=== PATIENT | female | born 1970 | race Caucasian/White ===

== ENCOUNTER 2019-09-30 13:52 | Outpatient (CLI) | payer OTHER, SELFPAY ==
--- NOTE | ~2019-09-30 | XR_ITS ---
EXAMINATION: XR chest 2V EXAM DATE: 09/30/2019 14:15 INDICATION: Cough, symptoms one week. Shortness of breath. TECHNIQUE: Frontal and lateral projections of the chest obtained and reviewed. Comparison is made to prior examination from 04/03/2014. FINDINGS: The lungs are clear. There are no pleural effusions. The cardiomediastinal silhouette is within normal limits. There is no pneumothorax suspected. The bones and soft tissues are unremarkab le. There are cholecystectomy clips. IMPRESSION: No acute cardiopulmonary findings. Reviewed, dictated and finalized at location A.
== END 2019-09-30 13:53 | disposition home or self-care (01) ==
PROVIDERS: PCP Physician Assistant; Visit Provider Physician Assistant
DX: R05 Cough (principal); R06.02 Shortness of breath
CPT/HCPCS: 71046

== ENCOUNTER 2020-11-13 08:06 | Outpatient (CLI) | payer OTHER, SELFPAY ==
--- NOTE | ~2020-11-13 | MM_ITS ---
EXAMINATION: MM screening anastasia BI w barbara HISTORY: Screening TECHNIQUE: Craniocaudal and mediolateral oblique 3-D tomosynthesis images were obtained and synthetic 2-D images were generated. CAD analysis was submitted and interpreted. COMPARISON: Comparison to multiple prior studies sequentially, with oldest reviewed study dated 01/04. BREAST PARENCHYMAL COMPOSITION: There are scattered areas of fibroglandular density. FINDINGS: There is no evidence of suspicious mass, calcification, or architectural distortion to sugg est malignancy in either breast. There has been no suspicious interval change. IMPRESSION: 1. No mammographic evidence of malignancy. 2. Recommend routine screening mammography in one year. BI-RADS Category 1: Negative Reviewed, dictated and finalized at location A.
== END 2020-11-13 08:07 | disposition home or self-care (01) ==
PROVIDERS: PCP Physician Assistant; Visit Provider Physician Assistant
DX: Z12.31 Encounter for screening mammogram for malignant neoplasm of breast (principal)
CPT/HCPCS: 77063; 77067

== ENCOUNTER 2022-10-01 15:51 | Outpatient (CLI) | payer OTHER, SELFPAY ==
--- NOTE | ~2022-10-01 | XR_ITS ---
EXAMINATION: XR chest 2V Exam Date/Time: 10/01/2022 15:50 CDT HISTORY: chest pain RIGHT SIDE FOR 1 DAY, HTN, SMOKER Comparison: None available. RESULT: Lines, tubes, and devices: None. Lungs and pleura: Clear. Cardiomediastinal silhouette: Normal. Other: No acute osseous or upper abdominal finding. IMPRESSION: No acute cardiopulmonary process. Reviewed, dictated and finalized at location K.
== END 2022-10-01 15:52 | disposition home or self-care (01) ==
PROVIDERS: PCP Family Medicine; Visit Provider Physician Assistant
DX: R07.9 Chest pain, unspecified (principal); I10 Essential (primary) hypertension
CPT/HCPCS: 71046

== ENCOUNTER 2023-08-06 07:27 | Outpatient (CLI) | payer BC, SELFPAY ==
--- NOTE | ~2023-08-06 | MM_ITS ---
EXAMINATION: MM screening [facility] BI w barbara HISTORY: Screening mammogram TECHNIQUE: Craniocaudal and mediolateral oblique 3-D tomosynthesis images were obtained and synthetic 2-D images were generated. CAD analysis was submitted and interpreted. COMPARISON: 11/13/2020, 02/08/2019, 01/06/2018 BREAST PARENCHYMAL COMPOSITION: The breasts are almost entirely fatty. FINDINGS: No suspicious mass, calcification, or architectural distortion are identified in either brandi ast to suggest malignancy. There has been no suspicious interval change. IMPRESSION: 1. No mammographic evidence of malignancy. 2. Recommend routine screening mammography in one year. BI-RADS Category 1: Negative Reviewed, dictated and finalized at location A. [employer]
== END 2023-08-06 07:28 | disposition home or self-care (01) ==
LOC: ANHIMG 07:33
PROVIDERS: PCP Family Medicine; Visit Provider Physician Assistant
DX: Z12.31 Encounter for screening mammogram for malignant neoplasm of breast (principal)
CPT/HCPCS: 77063; 77067

== ENCOUNTER 2024-01-19 02:42 | Day surgery (SDC) | payer BC, SELFPAY ==
[2024-01-06 13:17] VITALS: BMI 35.2
[2024-01-19 10:05] VITALS: BP 169/82; PULSE 111; RESP 16; TEMP 36.9; O2SAT 98
[2024-01-19] MEDS: LACTATED RINGERS 1,000 ML 150 ML IV CONT (10:16)
--- NOTE | 2024-01-19 11:13 | WPDANESEPPF ---
Anes - Initial Pre Proc Eval Procedure: Operation Date: 01/19/24 11:00 Proposed Procedures p Screening Colonoscopy - Israel De Leon DO Date/Time: 01/19/24 11:13 Surgeon: Israel De Leon DO Pre Op Diagnosis: Neoplasm screening Patient Data Age: 53 Gender: F Height: 1.63 m Weight: 92.1 kg Last Vital Signs Temp 98.4 F 01/19/24 10:05 Pulse 111 H 01/19/24 10:05 Resp 16 01/19/24 10:05 BP 169/82 H 01/19/24 10:05 Pulse Ox 98 01/19/24 10:05 O2 Del Method Room Air 01/19/24 10:05 Allergies Allergy/AdvReac Type Severity Reaction Status Date / Time Tetanus Vaccines and Toxoid Allergy Intermediate Swelling Verified 01/19/24 10:05 Home Medications Medication Instructions Recorded Confirmed Type atorvastatin 40 mg tablet 40 mg PO DAILY #90 tabs 07/30/23 01/06/24 Rx paroxetine HCl 10 mg tablet 10 mg PO DAILY #90 tabs 07/30/23 01/06/24 Rx losartan 100 mg tablet See Rx Instructions .Route 12/02/23 01/06/24 Rx .COMPLEX #30 tabs multivitamin 1 tablet PO DAILY 12/28/23 01/06/24 History Patient hx anesthesia problems: none Family hx anesthesia problems: none Results Review: All pre-operative results and documents have been reviewed as part of the pre-operative evaluation. [facility] Past Medical History Medical History Anxiety Hyperlipidemia Hypertension Surgical History Surgical History History of cervical cone biopsy affecting care of mother, antepartum 80s-90s History of section 1997 History of cholecystectomy 1997 History of hysterectomy 04/11/2014 History of tonsillectomy 1986 Family History Family History Father Hypertension Mother Hypertension Grandparent Diabetes mellitus Cerebrovascular accident Social History Social History Smoking packs per day: 1 Smoking cigarettes per day: 20.0 Years smoked: 30 Smoking pack-years: 30.00 Smoking status: Former smoker Tobacco type: cigarettes Second hand tobacco smoke exposure: Yes Alcohol intake: current Alcohol use details: couple times a year Substance use: never Substance use type: does not use Do You Feel Safe in your Home?: Yes Lack of Transportation: No Lack of Food: Never True Current Housing: I Have Housing Concerned About Future Housing: No Difficulty Paying Gas/Electric Bills: No Difficulty Paying for Meds: No Currently Unemployed: No Education: Trade/Vocational Certificate Difficulty w/ Childcare or Family Care: No Living arrangements: with family Occupation/Education: occupation 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 Gender identity (if verbalized by the patient): Female Sexual Orientation (if Verbalized by the Patient): Straight or Heterosexual Spiritual care concerns: No Anes - Eval Final PreProcedure Day of Procedure 01/19/24 11:13 Patient weight: obese Heart: regular rate and rhythm Lungs: clear to auscultation Airway: Mallampati scale class II Neurological: alert and oriented Last oral intake: >/= 8 hours ASA classification: III Emergent: no Anesthetic plan: proceed Anesthesia type and monitoring: general GIVS and standard monitoring Results Review: All pre-operative results and documents have been reviewed as part of the pre-operative evaluation. Informed Consent: The patient's anesthetic plan and its attendant risks and benefits were discussed with the patient/family/POA. Questions were solicited and answers provided to the satisfaction of the patient/family/POA.
--- NOTE | 2024-01-19 11:23 | PM.IMHP ---
H&P: HPI History of Present Illness Date/Time: 01/19/24 11:23 Chief Complaint: screening for colorectal cancer Narrative: this is a 53-year-old woman who presents for colonoscopy. She has never had a colonoscopy before. She denies any family history of colon cancer. She denies any hematochezia or melena. Review of Systems Review of Systems: All systems reviewed & are unremarkable except as noted in HPI and below Constitutional: Constitutional: Denies chills, Denies fever(s), Denies headache(s) and Denies weight loss Eyes: Eyes: Denies change in vision ENT: Denies dizziness, Denies headache(s), Denies neck mass and Denies throat swelling Cardiovascular: Cardiovascular: Denies chest pain, Denies lightheadedness and Denies dyspnea Respiratory: Respiratory: Denies cough, Denies dyspnea and Denies wheezing Gastrointestinal: Gastrointestinal: Denies abdominal pain, Denies change in bowel habits, Denies nausea and Denies vomiting Genitourinary: Genitourinary: Denies hematuria and Denies dysuria Musculoskeletal: Musculoskeletal: Reports as per HPI Integumentary/Breasts: Skin/Breast: Reports as per HPI Neurologic: Denies dizziness and Denies headache(s) Allergic/Immunologic: Allergic/Immunologic: Denies throat swelling and Denies wheezing [facility] Past Medical History Medical History Anxiety Hyperlipidemia Hypertension Surgical History Surgical History History of cervical cone biopsy affecting care of mother, antepartum 80s-90s History of section 1997 History of cholecystectomy 1997 History of hysterectomy 04/11/2014 History of tonsillectomy 1986 Family History Family History Father Hypertension Mother Hypertension Grandparent Diabetes mellitus Cerebrovascular accident Social History Social History Smoking packs per day: 1 Smoking cigarettes per day: 20.0 Years smoked: 30 Smoking pack-years: 30.00 Smoking status: Former smoker Tobacco type: cigarettes Second hand tobacco smoke exposure: Yes Alcohol intake: current Alcohol use details: couple times a year Substance use: never Substance use type: does not use Do You Feel Safe in your Home?: Yes Lack of Transportation: No Lack of Food: Never True Current Housing: I Have Housing Concerned About Future Housing: No Difficulty Paying Gas/Electric Bills: No Difficulty Paying for Meds: No Currently Unemployed: No Education: Trade/Vocational Certificate Difficulty w/ Childcare or Family Care: No Living arrangements: with family Occupation/Education: occupation 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 Gender identity (if verbalized by the patient): Female Sexual Orientation (if Verbalized by the Patient): Straight or Heterosexual Spiritual care concerns: No Meds Home Medications and Allergies Home Medications Medication Instructions Recorded Confirmed Type atorvastatin 40 mg tablet 40 mg PO DAILY #90 tabs 07/30/23 01/06/24 Rx paroxetine HCl 10 mg tablet 10 mg PO DAILY #90 tabs 07/30/23 01/06/24 Rx losartan 100 mg tablet See Rx Instructions .Route 12/02/23 01/06/24 Rx .COMPLEX #30 tabs multivitamin 1 tablet PO DAILY 12/28/23 01/06/24 History Allergies Allergy/AdvReac Type Severity Reaction Status Date / Time Tetanus Vaccines and Toxoid Allergy Intermediate Swelling Verified 01/19/24 10:05 Vital Signs Vital Signs - 24 hr 01/19/24 10:05 Temperature 36.9 C Pulse Rate 111 H Respiratory Rate 16 Blood Pressure 169/82 H Pulse Oximetry 98 Oxygen Delivery Room Air Exam Const: General: no acute distress and alert Orientation/consciousness: patient oriented x3 HENMT: Head: normocephalic and atraumatic Ears: h
[2024-01-19 11:54] VITALS: BP 109/69; PULSE 85; RESP 16; O2SAT 99
[2024-01-19 12:04] VITALS: BP 132/81; PULSE 85; RESP 16; O2SAT 98
[2024-01-19 12:14] VITALS: BP 106/83; PULSE 87; RESP 16; O2SAT 98
== END 2024-01-19 12:31 | disposition home or self-care (01) ==
PROVIDERS: PCP Family Medicine; Visit Provider Surgery
PROC: 0DJD8ZZ Inspection of Lower Intestinal Tract, Via Natural or Artificial Opening Endoscopic (ICD-10-PCS; CPT 45378; principal; 2024-01-19 11:00)
DX: Z12.11 Encounter for screening for malignant neoplasm of colon (principal); D12.5 Benign neoplasm of sigmoid colon; K64.8 Other hemorrhoids; E78.5 Hyperlipidemia, unspecified; I10 Essential (primary) hypertension; F41.9 Anxiety disorder, unspecified; Z87.891 Personal history of nicotine dependence
CPT/HCPCS: 45385; 88305; J2704; J7120

== ENCOUNTER 2024-09-01 09:00 | Outpatient (CLI) | payer BC, SELFPAY ==
--- NOTE | ~2024-09-01 | MM_ITS ---
EXAMINATION: MM screening anastasia BI w barbara HISTORY: Screening TECHNIQUE: Craniocaudal and mediolateral oblique 3-D tomosynthesis images were obtained and synthetic 2-D images were generated. CAD analysis was submitted and interpreted. COMPARISON: Comparison to multiple prior studies sequentially, with oldest reviewed study dated 10/2014. BREAST PARENCHYMAL COMPOSITION: Not dense: There are scattered areas of fibroglandular density. FINDINGS: There is no evidence of suspicious mass, calcification, or architectural distortion to sugg est malignancy in either breast. There has been no suspicious interval change. IMPRESSION: 1. No mammographic evidence of malignancy. 2. Recommend routine screening mammography in one year. BI-RADS Category 1: Negative Reviewed, dictated and finalized at location [] D [employer]
== END 2024-09-01 09:01 | disposition home or self-care (01) ==
PROVIDERS: PCP Family Medicine; Visit Provider Family Medicine
DX: Z12.31 Encounter for screening mammogram for malignant neoplasm of breast (principal)
CPT/HCPCS: 77063; 77067

== ENCOUNTER 2025-01-02 09:37 | Inpatient (IN) | payer BC, SELFPAY ==
[2025-01-02] VITALS (47 sets, daily range): BP systolic 109–150; BP diastolic 48–80; PULSE 80–114; RESP 8–28; TEMP 36.4–37.2; O2SAT 94–100; BMI 34.1
--- NOTE | ~2025-01-02 | CT_ITS ---
CTA abdomen pelvis Ordering provider: Lizbeth Garcia MD History: . GI bleed, rectal bleeding x3 weeks, no pain . Comparison: None. Technique: CT angiogram abdomen and pelvis was performed following timed intravenous injection of con trast. Thin slice axial images and reformatted coronal images were obtained. Three dimensional reform atted images of the chest were also obtained using a [employer] workstation. . Automated exposure contro l and iterative reconstruction technique were employed. The dose-length product was 1147.29 mGy-cm. 100 mL Omnipaque 350 was given IV. FINDINGS: VISUALIZED LOWER CHEST: Mild dependent atelectasis bilaterally. UPPER ABDOMINAL ORGANS: Liver: Normal. Gallbladder: Status post cholecystectomy. Spleen: Normal. Stomach/duodenum: Normal. Pancreas: Normal. Adrenals: Bilateral adrenal adenomas with the left measures 2.4 cm and the right measures 1.9 cm. Kidneys: Normal. PELVIC ORGANS: The bladder is underfilled with thickened wall. BOWEL AND MESENTERY: Colon: No evidence of diverticulitis. Normal appendix. Small Bowel: Normal. No obstruction. Peritoneum/mesentery: No free air or free fluid. No mesenteric lymphadenopathy. RETROPERITONEUM: No retroperitoneal lymphadenopathy. ABDOMINAL AORTA: Mild atherosclerotic changes. Otherwise, Normal in caliber. No dissection. ILIAC ARTERIES AND BRANCHING VESSELS: Atherosclerotic changes. Normal in caliber. RENAL ARTERIES: Atherosclerotic changes. Normal caliber. CELIAC AXIS AND BRANCHING VESSELS: Normal. SUPERIOR MESENTERIC ARTERY AND BRANCHING VESSELS: Normal. INFERIOR MESENTERIC ARTERY: Normal. VISUALIZED FEMORAL ARTERIES: Atherosclerotic changes. Otherwise, Normal. MUSCULOSKELETAL: Superficial soft tissues: fat-containing umbilical hernia. Otherwise, The superficial soft tissues ar e normal. Bones: Age appropriate degenerative changes of the spine. Bilateral hip osteoarthritic changes. IMPRESSION: 1. No evidence of appendicitis, diverticulitis or intestinal obstruction. No definite active bleedin g seen. Clinical evaluation and if warranted colonoscopy is advised. 2. Bilateral adrenal adenomas. Further evaluation with dynamic CT or MRI is advised. Reviewed, dictated and finalized at location A. IMPRESSION: 1. No evidence of appendicitis, diverticulitis or intestinal obstruction. No d efinite active bleeding seen. Clinical evaluation and if warranted colonoscopy is advised. 2. Bilateral adrenal adenomas. Further evaluation with dynamic CT or MRI is ad vised.
--- NOTE | 2025-01-02 10:01 | ECG_ITS ---
Test Date: 2025-01-02 10:04:19 Measurements Intervals [place] Rate: 104 P: 26 MN: 140 QRS: 49 QRSD: 94 T: 34 QT: 344 QTc: 454 Interpretive Statements SINUS TACHYCARDIA INCOMPLETE RIGHT BUNDLE BRANCH BLOCK BORDERLINE T WAVE ABNORMALITY- ANTERIOR LEADS BORDERLINE ECG No previous ECG available for comparison Electronically Signed On 01-02-2025 10:15:36 CDT by Will Echols D.O.
[2025-01-02 10:15] LABS: Basophils Percent Auto 0.2 % (0.2-1.2); Eosinophils Absolute Auto 0.1 K/mm3 (0-0.3); Eosinophils Percent Auto 0.8 % (0-4.4); Immature Granulocyte Percent A 0.8 % (0-0.5); Lymphocytes Absolute Auto 3.45 K/mm3 (0.9-3.2); Lymphocytes Percent Auto 27.5 % (18.3-44.2); Mean Corpuscular HGB Conc 30.3 g/dl (32-36); Mean Corpuscular Hemoglobin 26.1 pg (26-34); Mean Corpuscular Volume 86.2 fl (80-100); Mean Platelet Volume 8.9 fl (7.4-10.4); Monocytes Absolute Auto 0.9 K/mm3 (0.1-0.6); Monocytes Percent Auto 7.4 % (2.6-8.5); Neutrophils Percent Auto 63.3 % (45.5-73.1); Platelet Count Result 396 k/mm3 (150-375); Red Blood Count 2.18 M/mm3 (4.2-5.4); Red Cell Distribution Width 14.1 % (11.5-14.5); White Blood Count 12.6 K/mm3 (4.5-10.0)
[2025-01-02 10:17] LABS: Hematocrit 18.8 % (37.0-47.0); Hemoglobin 5.7 g/dL (12.0-15.0)
[2025-01-02 10:25] LABS: Alanine Aminotransferase 48 U/L (6-35); Albumin Level 3.7 g/dL (3.5-5.1); Alkaline Phosphatase 83 U/L (38-126); Anion Gap 10 mmol/L (4-12); Aspartate Amino Transferase 37 U/L (14-36); Bilirubin,Total 0.2 mg/dL (0.2-1.3); Blood Urea Nitrogen 10 mg/dL (7-17); Calcium 8.4 mg/dL (8.4-10.2); Carbon Dioxide 21 mmol/L (22-30); Chloride 105 mmol/L (98-107); Estimated CRCL calculation 70 ml/min; Estimated Glomerular Filt Rate > 60; Glucose 135 mg/dL (65-110); Potassium 3.6 mmol/L (3.4-5.0); Sodium 136 mmol/L (137-145); Total Protein 6.6 g/dL (6.3-8.2)
[2025-01-02 10:27] LABS: INR 1.1; Prothrombin Time 13.7 Seconds (11.1-14.7)
[2025-01-02 10:28] LABS: Partial Thromboplastin Time 24.4 Seconds (22.3-36.8)
[2025-01-02 11:31] LABS: Lactic Acid Reflex 2.7 mmol/L (0.7-2.0)
--- NOTE | 2025-01-02 11:56 | ED_ITS ---
HPI - GI Bleed General Chief complaint: GI Bleed Stated complaint: blood in stool Time Seen by Provider: 01/02/25 10:19 Source: patient and family Limitations: no limitations History of Present Illness HPI Narrative: Patient reports with report of bloody stool. Was initially reported that she had been having bright red blood per rectum for the past 3 weeks. Reports dripping into toilet bowl. History of hemorrhoids. Reports polyp and internal hemorrhoid on last colonoscopy performed here. She reports that her stool has been normal but then when asked to describe it to determine if there had been evidence of hematochezia she notes that it has been hard to tell. No rectal pain no abdominal pain other than occasional right-sided abdominal pain. However, she does not know if this is related to the fact that she has a known diastasis and recently started working out as well. Not on anticoagulation or taking NSAIDs or steroids. Related Data Home Medications ?Medication ?Instructions ?Recorded ?Confirmed ?Last Taken ?Type multivitamin 1 tablet PO DAILY 12/28/23 01/02/25 Unknown History Allergies Allergy/AdvReac Type Severity Reaction Status Date / Time Tetanus Vaccines and Toxoid Allergy Intermediate Swelling Verified 11/07/24 09:30 [facility] Past Medical History Medical History (Updated 01/04/25 @ 09:08 by Israel De Leon DO) Morbid obesity Metabolic dysfunction-associated steatohepatitis (MASH) Personal history of adenomatous and serrated colon polyps Abnormal glucose Screening for colorectal cancer Rectus diastasis Anxiety Hyperlipidemia Hypertension Surgical History Surgical History (Updated 01/04/25 @ 11:03 by Lizbeth Garcia MD) History of colonoscopy January 2024, [facility] History of hysterectomy 04/11/2014 History of cholecystectomy 1997 History of section 1997 History of tonsillectomy 1986 History of cervical cone biopsy affecting care of mother, antepartum 80s-90s Family History Family History Father Hypertension Mother Hypertension Grandparent Diabetes mellitus Cerebrovascular accident Social History Social History Smoking packs per day: 1 Smoking cigarettes per day: 20.0 Years smoked: 30 Smoking pack-years: 30.00 Smoking status: Former smoker Alcohol intake: current Alcohol use details: couple times a year Substance use: never Substance use type: does not use Do You Feel Safe in your Home?: Yes Lack of Transportation: No Lack of Food: Never True Current Housing: I Have Housing Concerned About Future Housing: No Difficulty Paying Gas/Electric Bills: No Difficulty Paying for Meds: No Currently Unemployed: No Education: Trade/Vocational Certificate Difficulty w/ Childcare or Family Care: No Living arrangements: with family Occupation/Education: occupation 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 HEAD: Normocephalic, atraumatic. EYES: Non injected, non icteric. Mildly pale conjunctiva. ENT: Nares clear, no rhinorrhea or epistaxis. Gross auditory acuity intact. NECK: Supple. No meningismus. CHEST: Speaking in full sentences. No respiratory distress. HEART: Tachycardic rate and rhythm. . ABDOMEN: Soft, nondistended. No rigidity or guarding. Not peritoneal. Digital rectal exam: External non thrombosed and non bleeding hemorrhoids. Normal rectal tone. Hematochezia on gloved lubricated finger. Guiaic/FOBT positive. EXTREMITIES: Normal range of motion. No lower extremity edema. SKIN: Warm, dry, no rash. NEURO: No focal deficits. Alert and oriented. Answering questions. Following commands. Normal speech without aphasia or dysarthria. PSYCH: Normal mood and affect. Course Vital Signs Vital signs: Vital Signs Temperature 98.1 F 01/02/25 09:58 Pulse Rate 114 H 01/02/25 09:58 Respiratory Rate 16 01/02/25 09:58 Blood Pressure 145/58 H 01/02/25 09:58 Pulse Oximetry 100 01/02/25 09:58 Temperature 98.1 F 01/04/25 05:20 Pulse Rate 97 01/04/25 05:20 Respiratory Rate 16 01/04/25 05:20 Blood Pressure 139/71 01/04/25 05:20 Pulse Oximetry 98 01/04/25 09:11 Oxygen Delivery Room Air 01/04/25 09:11 MDM - GI Bleed MDM Narrative Medical decision making narrative: The patient is a 54 year old who comes to the emergency department with rectal bleeding that started 3 weeks ago. They noted bright red blood in the toilet which has recurred with nearly every stool. Possibly associated abdominal pain though she had attributed this right-sided abdominal pain to rectus diastasis and recently startign working out. Unclear if hematochezia by report but hematochezia on TRE. In the emergency department she is afebrile with vital signs notable for hypertension. Blood pressure is acceptable although a very slightly low diastolic blood pressure however mean arterial pressure is appropriate. Based on history and physical, suspect lower GI bleed so will go ahead and order CBC, CMP, coagulation studies, lactate, and type and screen. My differential diagnosis at this time is diverticulosis versus angiodysplasia versus Meckel's diverticulum. Colon cancer is also possible. Unlikely to be ischemic bowel or anal fissure . IBD/infectious diarrhea possible. Possibly hemorrhoids though less likely given degree of bleeding. [place] Score (predicts readmission risk in patients with acute lower GI bleeding) Based on age, sex, previous lower GI bleed admission, TRE findings, HR, SBP, and initial Hgb: 29?points [place] Score ([facility] [place] guideline https://www.mdcalc.com/guidelines/502 ) 11-16?% Probability of safe discharge (absence of rebleeding, blood transfusion, therapeutic intervention, 28 day readmission, or ). Discharge NOT recommended. Consider admission with further workup and resuscitation as necessary. == Given initial hemoglobin, order for blood transfusion 2 units is given and nurse performed informed consent at bedside and this was placed in her chart. Pre transfusion labs ordered. Very mild AST and ALT elevations. Repeat H&H for after blood transfusion is ordered. CTA abd/pelvis without active source. Need for admission is discussed with patient she is in agreement. Discussed patient with on-call escrow processor who recommends NPO at midnight and will plan for colonoscopy tomorrow. Discussed with booster station operator hospitalist Stacey SHARMA who accepts admission. Patient has otherwise been hemodynamically stable. Lab Data Attestation: I reviewed the patient's lab results. 01/04/25 08:41 01/04/25 08:41 Labs: Lab Results 01/02/25 01/02/25 01/02/25 Range/Units 10:09 10:10 11:03 WBC 12.6 H (4.5-10.0) K/mm3 RBC 2.18 L (4.2-5.4) M/mm3 Hgb 5.7 L* (12.0-15.0) g/dL Hct 18.8 L* (37.0-47.0) % MCV 86.2 (80-100) fl MCH 26.1 (26-34) pg MCHC 30.3 L (32-36) g/dl RDW 14.1 (11.5-14.5) % Plt Count 396 H (150-375) k/mm3 MPV 8.9 (7.4-10.4) fl Immature Gran % (Auto) 0.8 H (0-0.5) % Neut % (Auto) 63.3 (45.5-73.1) % Lymph % (Auto) 27.5 (18.3-44.2) % [place] % (Auto) 7.4 (2.6-8.5) % Eos % (Auto) 0.8 (0-4.4) % Baso % (Auto) 0.2 (0.2-1.2) % Lymph # (Auto) 3.45 H (0.9-3.2) K/mm3 [place] # (Auto) 0.9 H (0.1-0.6) K/mm3 Eos # (Auto) 0.1 (0-0.3) K/mm3 Baso # (Auto) 0.0 (0.0-0.1) K/mm3 Abs Immat Gran (auto) 0.10 H (0.00-0.031) K/mm3 Absolute Neuts (auto) 8.0 H (1.3-6.7) K/mm3 Absolute Nucleated RBC 0.000 (0.0-0.012) K/mm3 Nucleated RBC % 0.0 (0.0-0.2) % PT 13.7 (11.1-14.7) Seconds INR 1.1 APTT 24.4 (22.3-36.8) Seconds Sodium 136 L (137-145) mmol/L Potassium 3.6 (3.4-5.0) mmol/L Chloride 105 (98-107) mmol/L Carbon Dioxide 21 L (22-30) mmol/L Anion Gap 10 (4-12) mmol/L BUN 10 (7-17) mg/dL Creatinine 0.94 (0.7-1.0) mg/dL Estim Creat Clear Calc 70 ml/min Estimated GFR > 60 (59 - ) Glucose 135 H (65-110) mg/dL Lactic Acid 2.7 H (0.7-2.0) mmol/L Calcium 8.4 (8.4-10.2) mg/dL Magnesium (1.6-2.3) mg/dL Iron 30 L (37-170) ug/dL TIBC 418 (261-462) ug/dL % Saturation 7 L (20-50) % Ferritin 7.47 L (11.1-264) ng/mL Total Bilirubin 0.2 (0.2-1.3) mg/dL AST 37 H (14-36) U/L ALT 48 H (6-35) U/L Alkaline Phosphatase 83 (38-126) U/L Troponin I < 0.012 (0.000-0.034) ng/mL Total Protein 6.6 (6.3-8.2) g/dL Albumin 3.7 (3.5-5.1) g/dL Lipase 96 (23-300) U/L Urine Color (Yellow) Urine Appearance (Clear) Urine pH (5.0-9.0) Ur Specific [place] (1.001-1.035) Urine Protein (Negative) mg/dL Urine Glucose (UA) (Negative) mg/dL Urine Ketones (Negative) mg/dL Ur Blood (Man) (Negative) Urine Nitrate (Negative) Urine Bilirubin (Negative) Urine Urobilinogen (<2.0) mg/dL Leukocyte Esterase Rfl (Negative) KAYELN/UL Urine RBC (0-2) /hpf Urine WBC (0-3) /hpf Ur Squamous Epith Cells (Few) /hpf Urine Bacteria /hpf Urine Casts Blood Type O Positive Antibody Screen Negative Crossmatch See Detail 01/02/25 01/02/25 01/02/25 Range/Units 12:14 13:19 18:49 WBC (4.5-10.0) K/mm3 RBC (4.2-5.4) M/mm3 Hgb 7.8 L (12.0-15.0) g/dL Hct 24.2 L (37.0-47.0) % MCV (80-100) fl MCH (26-34) pg MCHC (32-36) g/dl RDW (11.5-14.5) % Plt Count (150-375) k/mm3 MPV (7.4-10.4) fl Immature Gran % (Auto) (0-0.5) % Neut % (Auto) (45.5-73.1) % Lymph % (Auto) (18.3-44.2) % [place] % (Auto) (2.6-8.5) % Eos % (Auto) (0-4.4) % Baso % (Auto) (0.2-1.2) % Lymph # (Auto) (0.9-3.2) K/mm3 [place] # (Auto) (0.1-0.6) K/mm3 Eos # (Auto) (0-0.3) K/mm3 Baso # (Auto) (0.0-0.1) K/mm3 Abs Immat Gran (auto) (0.00-0.031) K/mm3 Absolute Neuts (auto) (1.3-6.7) K/mm3 Absolute Nucleated RBC (0.0-0.012) K/mm3 Nucleated RBC % (0.0-0.2) % PT (11.1-14.7) Seconds INR APTT (22.3-36.8) Seconds Sodium (137-145) mmol/L Potassium (3.4-5.0) mmol/L Chloride (98-107) mmol/L Carbon Dioxide (22-30) mmol/L Anion Gap (4-12) mmol/L BUN (7-17) mg/dL Creatinine (0.7-1.0) mg/dL Estim Creat Clear Calc ml/min Estimated GFR (59 - ) Glucose (65-110) mg/dL Lactic Acid 1.7 (0.7-2.0) mmol/L Calcium (8.4-10.2) mg/dL Magnesium (1.6-2.3) mg/dL Iron (37-170) ug/dL TIBC (261-462) ug/dL % Saturation (20-50) % Ferritin (11.1-264) ng/mL Total Bilirubin (0.2-1.3) mg/dL AST (14-36) U/L ALT (6-35) U/L Alkaline Phosphatase (38-126) U/L Troponin I (0.000-0.034) ng/mL Total Protein (6.3-8.2) g/dL Albumin (3.5-5.1) g/dL Lipase (23-300) U/L Urine Color Yellow (Yellow) Urine Appearance Clear (Clear) Urine pH 6.5 (5.0-9.0) Ur Specific [place] 1.007 (1.001-1.035) Urine Protein Negative (Negative) mg/dL Urine Glucose (UA) Negative (Negative) mg/dL Urine Ketones Negative (Negative) mg/dL Ur Blood (Man) Trace (Negative) Urine Nitrate Negative (Negative) Urine Bilirubin Negative (Negative) Urine Urobilinogen 0.2 (<2.0) mg/dL Leukocyte Esterase Rfl Trace H (Negative) KAYLEN/UL Urine RBC 0-2 (0-2) /hpf Urine WBC 0-5 (0-3) /hpf Ur Squamous Epith Cells None seen (Few) /hpf Urine Bacteria None seen /hpf Urine Casts 0-2 Blood Type Antibody Screen Crossmatch 01/02/25 01/03/25 01/04/25 Range/Units 23:31 03:25 08:41 WBC 10.2 H 10.8 H (4.5-10.0) K/mm3 RBC 2.79 L 2.90 L (4.2-5.4) M/mm3 Hgb 7.5 L 7.7 L 8.1 L (12.0-15.0) g/dL Hct 23.3 L 24.1 L 25.1 L (37.0-47.0) % MCV 86.4 86.6 (80-100) fl MCH 27.6 D 27.9 (26-34) pg MCHC 32.0 32.3 (32-36) g/dl RDW 14.6 H 14.4 (11.5-14.5) % Plt Count 305 340 (150-375) k/mm3 MPV 8.7 8.5 (7.4-10.4) fl Immature Gran % (Auto) 0.3 (0-0.5) % Neut % (Auto) 63.1 (45.5-73.1) % Lymph % (Auto) 27.7 (18.3-44.2) % [place] % (Auto) 7.3 (2.6-8.5) % Eos % (Auto) 1.3 (0-4.4) % Baso % (Auto) 0.3 (0.2-1.2) % Lymph # (Auto) 2.83 (0.9-3.2) K/mm3 [place] # (Auto) 0.8 H (0.1-0.6) K/mm3 Eos # (Auto) 0.1 (0-0.3) K/mm3 Baso # (Auto) 0.0 (0.0-0.1) K/mm3 Abs Immat Gran (auto) 0.03 (0.00-0.031) K/mm3 Absolute Neuts (auto) 6.4 (1.3-6.7) K/mm3 Absolute Nucleated RBC 0.000 (0.0-0.012) K/mm3 Nucleated RBC % 0.0 (0.0-0.2) % PT (11.1-14.7) Seconds INR APTT (22.3-36.8) Seconds Sodium 141 140 (137-145) mmol/L Potassium 3.6 3.7 (3.4-5.0) mmol/L Chloride 111 H 108 H (98-107) mmol/L Carbon Dioxide 25 25 (22-30) mmol/L Anion Gap 5 7 (4-12) mmol/L BUN 6 L 10 (7-17) mg/dL Creatinine 0.96 0.86 (0.7-1.0) mg/dL Estim Creat Clear Calc 68 76 ml/min Estimated GFR 60 > 60 (59 - ) Glucose 111 H 133 H (65-110) mg/dL Lactic Acid (0.7-2.0) mmol/L Calcium 7.7 L 8.2 L (8.4-10.2) mg/dL Magnesium 2.2 (1.6-2.3) mg/dL Iron (37-170) ug/dL TIBC (261-462) ug/dL % Saturation (20-50) % Ferritin (11.1-264) ng/mL Total Bilirubin 0.3 0.2 (0.2-1.3) mg/dL AST 30 30 (14-36) U/L ALT 39 H 38 H (6-35) U/L Alkaline Phosphatase 82 91 (38-126) U/L Troponin I (0.000-0.034) ng/mL Total Protein 5.9 L 6.1 L (6.3-8.2) g/dL Albumin 3.3 L 3.3 L (3.5-5.1) g/dL Lipase (23-300) U/L Urine Color (Yellow) Urine Appearance (Clear) Urine pH (5.0-9.0) Ur Specific [place] (1.001-1.035) Urine Protein (Negative) mg/dL Urine Glucose (UA) (Negative) mg/dL Urine Ketones (Negative) mg/dL Ur Blood (Man) (Negative) Urine Nitrate (Negative) Urine Bilirubin (Negative) Urine Urobilinogen (<2.0) mg/dL Leukocyte Esterase Rfl (Negative) KAYLEN/UL Urine RBC (0-2) /hpf Urine WBC (0-3) /hpf Ur Squamous Epith Cells (Few) /hpf Urine Bacteria /hpf Urine Casts Blood Type Antibody Screen Crossmatch Imaging Data Radiologist's impression: IMPRESSION: 1. No evidence of appendicitis, diverticulitis or intestinal obstruction. No definite active bleeding seen. Clinical evaluation and if warranted colonoscopy is advised. 2. Bilateral adrenal adenomas. Further evaluation with dynamic CT or MRI is advised. ECG Data EKG #1: Attestation: I personally reviewed and interpreted this ECG as follows: ECG completion date: 01/02/25 ECG completion time: 10:04 Interpretation: Sinus tachycardia at a rate of 104 beats per minute. IN interval 140. QRS 94. QT/QTC 344/405. Good R-wave progression across the precordial leads. T-wave flattening in lead 3 but otherwise upright in normal in contiguous inferior leads 2 and AVF. Slightly biphasic verses inverted T-wave in V3, possible lead placement. Does not appear to be [place]. No other T-wave inversions across lateral precordial leads. Discharge Plan Discharge Clinical Impression: Leukocytosis, Blood transfusion during current hospitalization, Bilateral adrenal adenomas GI (gastrointestinal bleed) Qualifiers: GI bleed type/associated pathology: unspecified gastrointestinal hemorrhage type Qualified Code(s): K92.2 - Gastrointestinal hemorrhage, unspecified Patient Disposition: Still a Patient Condition: Stable
[2025-01-02 12:27] LABS: Add Urine Microscopic? YES; Appearance Urine Clear (Clear); Bacteria Urine None Seen /hpf; Bilirubin Urine Negative (Negative); Blood Urine Trace (Negative); Color Urine Yellow (Yellow); Glucose Urine UA Negative (Negative); Ketones Urine Negative (Negative); Leukocyte Esterase Ur Trace LEU/UL (Negative); Nitrate Urine Negative (Negative); Non Pathogenic Casts 0-2; Protein Urine Negative (Negative); RBC Urine 0-2 /hpf (0-2); Specific Grav Ur 1.007 (1.001-1.035); Squamous Epithelial Cell Urine None Seen /hpf (Few); Urobilinogen Urine 0.2 mg/dL (<2.0); WBC Urine 0-5 /hpf (0-3); pH Urine 6.5 (5.0-9.0)
[2025-01-02 13:05] LABS: Iron 30 ug/dL (37-170)
[2025-01-02 13:05] LABS: Reflex Lactic Acid Yes or No Add Lactic
[2025-01-02 13:23] LABS: Lipase 96 U/L (23-300)
[2025-01-02] MEDS: SODIUM CHLORIDE 0.9% IV 250 ML 30 ML IV CONT (13:25)
[2025-01-02] MEDS: TUBING, BLOOD SET 1 EACH XX (13:25)
[2025-01-02] MEDS: SODIUM CHLORIDE 0.9% IV 1,000 ML 999 ML IV CONT ×2 (13:25→20:04)
[2025-01-02 13:26] LABS: Percent Iron Saturation 7 % (20-50)
[2025-01-02 13:34] LABS: Lactic Acid 1.7 mmol/L (0.7-2.0)
[2025-01-02 13:36] LABS: Troponin I < 0.012 ng/mL (0.000-0.034)
[2025-01-02 14:01] LABS: Ferritin 7.47 ng/mL (11.1-264)
--- NOTE | 2025-01-02 17:52 | PM.IMHP ---
H&P: HPI History of Present Illness Date/Time: 01/02/25 17:52 Chief Complaint: Rectal bleeding Narrative: 54-year-old female with past medical history of MASH, rectus diastasis, adenomatous and serrated colon polyps, anxiety, hyperlipidemia and hypertension presents here with rectal bleeding. The patient presents here from home on 01/02 for further evaluation of rectal bleeding. She reports onset approximately 2-3 weeks ago. It has been occurring with each bowel movements. Describes as bright red, small clots, stool normal in appearance - loose intermittently since GB removed, but not diarrhea. She endorses dizziness, fatigue, and shortness of breath. She reports the rectal bleeding is not accompanied by abdominal pain, fever, chills, body aches. She is not currently on anticoagulation. Previously underwent a colonoscopy in January of 2024 which showed sigmoid colon polyps and internal hemorrhoids. Pathology showed tubular adenoma. Initial VS at presentation: 98.1? F, HR 114, R 16, 145/58, and 100% on RA. ED workup showed: WBC 12.6, hemoglobin 5.7, normal coags, no significant electrolyte derangements, creatinine 0.94 and GFR >60, mild transaminitis, initial troponin negative, lipase negative, UA showed trace leuk esterase otherwise unremarkable. CTA of the abdomen/pelvis showed no evidence of appendicitis/diverticulitis/intestinal obstruction, no definite active bleeding noted, bilateral adrenal adenomas. Review of Systems Review of Systems: All systems reviewed & are unremarkable except as noted in HPI and below PMFSH Past Medical History Medical History Morbid obesity Metabolic dysfunction-associated steatohepatitis (MASH) Personal history of adenomatous and serrated colon polyps Abnormal glucose Screening for colorectal cancer Rectus diastasis Anxiety Hyperlipidemia Hypertension Surgical History Surgical History History of hysterectomy 04/11/2014 History of cholecystectomy 1997 History of section 1997 History of tonsillectomy 1986 History of cervical cone biopsy affecting care of mother, antepartum 80s-90s Family History Family History Father Hypertension Mother Hypertension Grandparent Diabetes mellitus Cerebrovascular accident Social History Social History Smoking packs per day: 1 Smoking cigarettes per day: 20.0 Years smoked: 30 Smoking pack-years: 30.00 Smoking status: Former smoker Alcohol intake: current Alcohol use details: couple times a year Substance use: never Substance use type: does not use Do You Feel Safe in your Home?: Yes Lack of Transportation: No Lack of Food: Never True Current Housing: I Have Housing Concerned About Future Housing: No Difficulty Paying Gas/Electric Bills: No Difficulty Paying for Meds: No Currently Unemployed: No Education: Trade/Vocational Certificate Difficulty w/ Childcare or Family Care: No Living arrangements: with family Occupation/Education: occupation 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 Gender identity (if verbalized by the patient): Female Sexual Orientation (if Verbalized by the Patient): Straight or Heterosexual Spiritual care concerns: No Meds Home Medications and Allergies Home Medications ?Medication ?Instructions ?Recorded ?Confirmed ?Type multivitamin 1 tablet PO DAILY 12/28/23 01/02/25 History atorvastatin 40 mg tablet 40 mg PO DAILY #90 tabs 07/17/24 01/02/25 Rx paroxetine HCl 10 mg tablet 10 mg PO DAILY #90 tabs 07/17/24 01/02/25 Rx losartan 100 mg tablet See Rx Instructions .Route 11/20/24 01/02/25 Rx .COMPLEX #30 tabs Allergies Allergy/AdvReac Type Severity Reaction Status Date / Time Tetanus Vaccines and Toxoid Allergy Intermediate Swelling Verified 11/07/24 09:30 Vital Signs Vital Signs - 24 hr 01/02/25 09:58 01/02/25 10:00 01/02/25 10:01 Temperature 98.1 F Pulse Rate 114 H Respiratory Rate 16 Blood Pressure 145/58 H 129/54 L Pulse Oximetry 100 100 100 Oxygen Delivery 01/02/25 10:15 01/02/25 10:16 01/02/25 10:30 Temperature Pulse Rate 97 97 102 H Respiratory Rate 14 16 16 Blood Pressure 115/61 122/76 Pulse Oximetry 100 99 100 Oxygen Delivery 01/02/25 10:31 01/02/25 10:45 01/02/25 11:00 Temperature Pulse Rate 101 H 99 96 Respiratory Rate 13 14 21 H Blood Pressure Pulse Oximetry 99 99 99 Oxygen Delivery 01/02/25 11:53 01/02/25 11:59 01/02/25 12:00 Temperature Pulse Rate 96 97 98 Respiratory Rate 11 L 17 10 L Blood Pressure 120/65 109/65 Pulse Oximetry 99 99 Oxygen Delivery 01/02/25 12:01 01/02/25 12:01 01/02/25 12:15 Temperature 97.8 F Pulse Rate 97 96 96 Respiratory Rate 10 L 11 L 13 Blood Pressure 109/65 118/61 Pulse Oximetry 99 97 99 Oxygen Delivery 01/02/25 12:16 01/02/25 12:17 01/02/25 12:30 Temperature 97.9 F Pulse Rate 96 93 92 Respiratory Rate 12 16 10 L Blood Pressure 118/61 128/64 Pulse Oximetry 98 99 98 Oxygen Delivery 01/02/25 12:31 01/02/25 12:45 01/02/25 12:46 Temperature Pulse Rate 93 89 90 Respiratory Rate 8 L 11 L 14 Blood Pressure 130/68 Pulse Oximetry 99 98 99 Oxygen Delivery 01/02/25 13:06 01/02/25 13:12 01/02/25 13:13 Temperature 97.6 F Pulse Rate 80 105 H 98 Respiratory Rate 16 15 13 Blood Pressure 132/80 124/58 L Pulse Oximetry 99 98 99 Oxygen Delivery 01/02/25 13:15 01/02/25 13:16 01/02/25 13:30 Temperature Pulse Rate 94 93 88 Respiratory Rate 14 13 13 Blood Pressure 109/58 L 110/57 L Pulse Oximetry 99 99 98 Oxygen Delivery 01/02/25 13:31 01/02/25 13:45 01/02/25 13:46 Temperature Pulse Rate 87 86 87 Respiratory Rate 12 13 12 Blood Pressure 116/62 Pulse Oximetry 99 98 98 Oxygen Delivery 01/02/25 14:00 01/02/25 14:01 01/02/25 14:15 Temperature Pulse Rate 91 96 91 Respiratory Rate 12 19 11 L Blood Pressure 119/71 Pulse Oximetry 99 100 99 Oxygen Delivery 01/02/25 14:16 01/02/25 14:30 01/02/25 14:31 Temperature Pulse Rate 94 88 89 Respiratory Rate 21 H 17 17 Blood Pressure 121/66 124/64 Pulse Oximetry 94 100 100 Oxygen Delivery 01/02/25 14:45 01/02/25 14:46 01/02/25 15:00 Temperature Pulse Rate 94 99 89 Respiratory Rate 17 28 H 18 Blood Pressure 123/61 Pulse Oximetry 100 96 100 Oxygen Delivery 01/02/25 15:01 01/02/25 15:12 01/02/25 15:28 Temperature 99.0 F 98.5 F Pulse Rate 94 93 88 Respiratory Rate 18 17 16 Blood Pressure 126/68 126/68 118/59 L Pulse Oximetry 100 100 99 Oxygen Delivery 01/02/25 16:28 01/02/25 16:50 Temperature 98 F Pulse Rate 88 Respiratory Rate 16 Blood Pressure 138/64 Pulse Oximetry 99 Oxygen Delivery Room Air Exam Const: General: comfortable and no acute distress Other: , female, nontoxic appearance HENMT: Face/Nose/Sinus: Normal nares present Mouth: Yes moist mucous membranes Eyes: General: appearance normal, both eyes and all related structures Sclera: sclerae normal Pupils: Equal, round and reactive pupils present EOM: EOMs intact bilaterally Resp: Effort & Inspection: normal respiratory effort Auscultation: clear to auscultation bilaterally Cardio: Rate: regular rate Rhythm: regular rhythm Other: S1-S2 present without murmur, rub, ectopy GI: Other: Abdomen soft, nontender, nondistended. Hyperactive bowel sounds in the RLQ, normoactive bowel sounds in all other quadrants. Skin: General skin exam: normal color and no rashes or lesions noted Wounds: no wounds Neuro: Speech: normal speech Motor exam (neuro): 5/5 motor strength present throughout Sensory Exam: normal sensation Other: A&O x4 Extrem: General: normal to inspection Psych: Mental Status: mental status grossly normal Affect: normal affect Other: Good insight and judgment, very pleasant H&P: Results Labs Labs: Short CBC 01/02/25 Range/Units 10:10 WBC 12.6 H (4.5-10.0) K/mm3 Hgb 5.7 L* (12.0-15.0) g/dL Hct 18.8 L* (37.0-47.0) % Plt Count 396 H (150-375) k/mm3 BMP 01/02/25 10:10 Sodium 136 L Potassium 3.6 Chloride 105 Carbon Dioxide 21 L BUN 10 Creatinine 0.94 Glucose 135 H Calcium 8.4 Cardiac Enzymes 01/02/25 Range/Units 10:10 Troponin I < 0.012 (0.000-0.034) ng/mL Liver Function 01/02/25 Range/Units 10:10 Total Bilirubin 0.2 (0.2-1.3) mg/dL AST 37 H (14-36) U/L ALT 48 H (6-35) U/L Alkaline Phosphatase 83 (38-126) U/L Albumin 3.7 (3.5-5.1) g/dL Urine 01/02/25 Range/Units 12:14 Urine Color Yellow (Yellow) Urine Appearance Clear (Clear) Urine pH 6.5 (5.0-9.0) Ur Specific [place] 1.007 (1.001-1.035) Urine Protein Negative (Negative) mg/dL Urine Glucose (UA) Negative (Negative) mg/dL Assessment and Plan Assessment and plan (1) GI (gastrointestinal bleed): Qualifiers: GI bleed type/associated pathology: unspecified gastrointestinal hemorrhage type Qualified Code(s): K92.2 - Gastrointestinal hemorrhage, unspecified Code(s): K92.2 - Gastrointestinal hemorrhage, unspecified Status: Acute Assessment and Plan: GI bleed for the past 2-3 weeks, bright red blood with small clots as well as a history of internal hemorrhoids leading to perception that bleeding is lower GI. GI has been consulted, see note. Plan for colonoscopy tomorrow, prep initiated this evening and NPO at midnight. Patient transfused 2 units, hemoglobin initially 5.7, repeat 7.8. Iron studies completed and showed iron deficiency. Will start ferrous sulfate 325 mg p.o. t.i.d. Will continue to trend H&H Q4H until a.m.. If patient hemoglobin continues to decline, continue H&H series. Transfuse if less than 7. Monitor hemodynamic stability. (2) Iron deficiency anemia: Qualifiers: Iron deficiency anemia type: chronic blood loss Qualified Code(s): D50.0 - Iron deficiency anemia secondary to blood loss (chronic) Code(s): D50.9 - Iron deficiency anemia, unspecified Status: Acute Assessment and Plan: See above (3) Hypertension: Qualifiers: Hypertension type: primary hypertension Qualified Code(s): I10 - Essential (primary) hypertension Code(s): I10 - Essential (primary) hypertension Status: Acute Assessment and Plan: Chronic, currently 150/67. Losartan held, plan for colonoscopy tomorrow. Resume postprocedure. Hydralazine p.r.n.. Plan Diet: Clear liquid, NPO midnight GI Prophylaxis: Not indicated DVT Prophylaxis: SCDs IV fluids: 2L bolus Lines/Tubes: Peripheral IV Code Status: Full code Quality VTE Prophylaxis VTE prophylaxis: mechanical ordered Hospitalist MIPS Advance Care Plan I have confirmed that the patient's Advanced Care Plan is present, code status is documented, or surrogate decision maker is listed in patient medical record.: Yes Medication Reconciliation I have utilized all available resources to obtain, update and review the patients current medications (includes all prescriptions, OTC, herbals, cannabis, and nutritional supplements).: Yes
[2025-01-02 19:05] LABS: Hematocrit 24.2 % (37.0-47.0); Hemoglobin 7.8 g/dL (12.0-15.0)
--- NOTE | 2025-01-02 19:52 | WPDGICN ---
Assessment and Plan Assessment and plan (1) Iron deficiency anemia: Code(s): D50.9 - Iron deficiency anemia, unspecified Status: Acute Assessment and Plan: the patient has intermittent, moderate rectal bleeding, which is clinically compatible with hemorrhoidal, especially given her history of recent colonoscopy and negative neoplasm/polyps and presence of internal hemorrhoids. However, will repeat colonoscopy tomorrow. More importantly, is crucial to address iron deficiency anemia, which is possible but not very frequently caused by hemorrhoids as the sole explanation. We will perform an EGD to rule out hiatal hernia, Russ ulcers, erosive gastritis or peptic ulcer disease. GI Consult Note Consult date/time: 01/02/25 19:52 Reason for consult: severe anemia-rectal bleed HPI: Katina Jaimes is a 54 year old female who has been experiencing intermittent episodes of bright red blood per rectum. The patient had a colonoscopy approximately 1 year ago which was reportedly normal a been told that she has internal hemorrhoids. She denies abdominal pain, mucus in blood, tenesmus Or urgency. Her laboratory data at admission showed a hemoglobin of 5.7, iron saturation 7%, ferritin 7.4. She denies hematemesis or melena. She never had an EGD. Review of Systems Review of Systems: All systems reviewed & are unremarkable except as noted in HPI and below PMFSH Past Medical History Medical History (Updated 01/02/25 @ 19:55 by Davie Faustin MD) Morbid obesity Metabolic dysfunction-associated steatohepatitis (MASH) Personal history of adenomatous and serrated colon polyps Abnormal glucose Screening for colorectal cancer Rectus diastasis Anxiety Hyperlipidemia Hypertension Surgical History Surgical History History of hysterectomy 04/11/2014 History of cholecystectomy 1997 History of section 1997 History of tonsillectomy 1986 History of cervical cone biopsy affecting care of mother, antepartum 80s-90s Family History Family History Father Hypertension Mother Hypertension Grandparent Diabetes mellitus Cerebrovascular accident Social History Social History Smoking packs per day: 1 Smoking cigarettes per day: 20.0 Years smoked: 30 Smoking pack-years: 30.00 Smoking status: Former smoker Alcohol intake: current Alcohol use details: couple times a year Substance use: never Substance use type: does not use Do You Feel Safe in your Home?: Yes Lack of Transportation: No Lack of Food: Never True Current Housing: I Have Housing Concerned About Future Housing: No Difficulty Paying Gas/Electric Bills: No Difficulty Paying for Meds: No Currently Unemployed: No Education: Trade/Vocational Certificate Difficulty w/ Childcare or Family Care: No Living arrangements: with family Occupation/Education: occupation 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 Gender identity (if verbalized by the patient): Female Sexual Orientation (if Verbalized by the Patient): Straight or Heterosexual Spiritual care concerns: No Meds Home Medications and Allergies Home Medications ?Medication ?Instructions ?Recorded ?Confirmed ?Type multivitamin 1 tablet PO DAILY 12/28/23 01/02/25 History atorvastatin 40 mg tablet 40 mg PO DAILY #90 tabs 07/17/24 01/02/25 Rx paroxetine HCl 10 mg tablet 10 mg PO DAILY #90 tabs 07/17/24 01/02/25 Rx losartan 100 mg tablet See Rx Instructions .Route 11/20/24 01/02/25 Rx .COMPLEX #30 tabs Allergies Allergy/AdvReac Type Severity Reaction Status Date / Time Tetanus Vaccines and Toxoid Allergy Intermediate Swelling Verified 11/07/24 09:30 Vital Signs Vital Signs - 24 hr 01/02/25 09:58 01/02/25 10:00 01/02/25 10:01 Temperature 98.1 F Pulse Rate 114 H Respiratory Rate 16 Blood Pressure 145/58 H 129/54 L Pulse Oximetry 100 100 100 Oxygen Delivery 01/02/25 10:15 01/02/25 10:16 01/02/25 10:30 Temperature Pulse Rate 97 97 102 H Respiratory Rate 14 16 16 Blood Pressure 115/61 122/76 Pulse Oximetry 100 99 100 Oxygen Delivery 01/02/25 10:31 01/02/25 10:45 01/02/25 11:00 Temperature Pulse Rate 101 H 99 96 Respiratory Rate 13 14 21 H Blood Pressure Pulse Oximetry 99 99 99 Oxygen Delivery 01/02/25 11:53 01/02/25 11:59 01/02/25 12:00 Temperature Pulse Rate 96 97 98 Respiratory Rate 11 L 17 10 L Blood Pressure 120/65 109/65 Pulse Oximetry 99 99 Oxygen Delivery 01/02/25 12:01 01/02/25 12:01 01/02/25 12:15 Temperature 97.8 F Pulse Rate 97 96 96 Respiratory Rate 10 L 11 L 13 Blood Pressure 109/65 118/61 Pulse Oximetry 99 97 99 Oxygen Delivery 01/02/25 12:16 01/02/25 12:17 01/02/25 12:30 Temperature 97.9 F Pulse Rate 96 93 92 Respiratory Rate 12 16 10 L Blood Pressure 118/61 128/64 Pulse Oximetry 98 99 98 Oxygen Delivery 01/02/25 12:31 01/02/25 12:45 01/02/25 12:46 Temperature Pulse Rate 93 89 90 Respiratory Rate 8 L 11 L 14 Blood Pressure 130/68 Pulse Oximetry 99 98 99 Oxygen Delivery 01/02/25 13:06 01/02/25 13:12 01/02/25 13:13 Temperature 97.6 F Pulse Rate 80 105 H 98 Respiratory Rate 16 15 13 Blood Pressure 132/80 124/58 L Pulse Oximetry 99 98 99 Oxygen Delivery 01/02/25 13:15 01/02/25 13:16 01/02/25 13:30 Temperature Pulse Rate 94 93 88 Respiratory Rate 14 13 13 Blood Pressure 109/58 L 110/57 L Pulse Oximetry 99 99 98 Oxygen Delivery 01/02/25 13:31 01/02/25 13:45 01/02/25 13:46 Temperature Pulse Rate 87 86 87 Respiratory Rate 12 13 12 Blood Pressure 116/62 Pulse Oximetry 99 98 98 Oxygen Delivery 01/02/25 14:00 01/02/25 14:01 01/02/25 14:15 Temperature Pulse Rate 91 96 91 Respiratory Rate 12 19 11 L Blood Pressure 119/71 Pulse Oximetry 99 100 99 Oxygen Delivery 01/02/25 14:16 01/02/25 14:30 01/02/25 14:31 Temperature Pulse Rate 94 88 89 Respiratory Rate 21 H 17 17 Blood Pressure 121/66 124/64 Pulse Oximetry 94 100 100 Oxygen Delivery 01/02/25 14:45 01/02/25 14:46 01/02/25 15:00 Temperature Pulse Rate 94 99 89 Respiratory Rate 17 28 H 18 Blood Pressure 123/61 Pulse Oximetry 100 96 100 Oxygen Delivery 01/02/25 15:01 01/02/25 15:12 01/02/25 15:28 Temperature 99.0 F 98.5 F Pulse Rate 94 93 88 Respiratory Rate 18 17 16 Blood Pressure 126/68 126/68 118/59 L Pulse Oximetry 100 100 99 Oxygen Delivery 01/02/25 16:28 01/02/25 16:50 01/02/25 17:28 Temperature 98 F 98.0 F Pulse Rate 88 83 Respiratory Rate 16 17 Blood Pressure 138/64 125/48 L Pulse Oximetry 99 99 Oxygen Delivery Room Air 01/02/25 18:28 01/02/25 18:51 Temperature 98.0 F 98.0 F Pulse Rate 86 85 Respiratory Rate 17 16 Blood Pressure 137/64 138/60 Pulse Oximetry 99 99 Oxygen Delivery Exam Const: General: cooperative and healthy appearing Resp: Effort & Inspection: normal respiratory effort and able to speak in complete sentences Auscultation: clear to auscultation bilaterally Cardio: Rate: regular rate Rhythm: regular rhythm GI: Inspection: normal to inspection GI Palp: No No hepatosplenomegaly present Auscultation: normal bowel sounds Rectal Exam: deferred Skin: General skin exam: normal color Psych: Appearance: grossly normal Mental Status: mental status grossly normal Results Labs 01/02/25 18:49 01/02/25 10:10 Labs: Short CBC 01/02/25 01/02/25 Range/Units 10:10 18:49 WBC 12.6 H (4.5-10.0) K/mm3 Hgb 5.7 L* 7.8 L (12.0-15.0) g/dL Hct 18.8 L* 24.2 L (37.0-47.0) % Plt Count 396 H (150-375) k/mm3 BMP 01/02/25 10:10 Sodium 136 L Potassium 3.6 Chloride 105 Carbon Dioxide 21 L BUN 10 Creatinine 0.94 Glucose 135 H Calcium 8.4 Cardiac Enzymes 01/02/25 Range/Units 10:10 Troponin I < 0.012 (0.000-0.034) ng/mL Liver Function 01/02/25 Range/Units 10:10 Total Bilirubin 0.2 (0.2-1.3) mg/dL AST 37 H (14-36) U/L ALT 48 H (6-35) U/L Alkaline Phosphatase 83 (38-126) U/L Albumin 3.7 (3.5-5.1) g/dL Urine 01/02/25 Range/Units 12:14 Urine Color Yellow (Yellow) Urine Appearance Clear (Clear) Urine pH 6.5 (5.0-9.0) Ur Specific [place] 1.007 (1.001-1.035) Urine Protein Negative (Negative) mg/dL Urine Glucose (UA) Negative (Negative) mg/dL
[2025-01-02] MEDS: polyethylene glycoL 3350 238 GM BOTTLE 119 GM PO (20:42)
[2025-01-02 23:35] LABS: Hematocrit 23.3 % (37.0-47.0); Hemoglobin 7.5 g/dL (12.0-15.0)
[2025-01-03] VITALS (8 sets, daily range): BP systolic 125–151; BP diastolic 62–98; PULSE 82–97; RESP 16–23; TEMP 36.4–36.8; O2SAT 92–100
--- NOTE | 2025-01-03 00:18 | PC.NURSE ---
Patient completed first half of oral colon prep. Stool not clear at this time. Will continue to monitor.
[2025-01-03 03:30] LABS: Basophils Percent Auto 0.3 % (0.2-1.2); Eosinophils Absolute Auto 0.1 K/mm3 (0-0.3); Eosinophils Percent Auto 1.3 % (0-4.4); Hematocrit 24.1 % (37.0-47.0); Hemoglobin 7.7 g/dL (12.0-15.0); Immature Granulocyte Absolute 0.03 K/mm3 (0.00-0.031); Immature Granulocyte Percent A 0.3 % (0-0.5); Lymphocytes Absolute Auto 2.83 K/mm3 (0.9-3.2); Lymphocytes Percent Auto 27.7 % (18.3-44.2); Mean Corpuscular Hemoglobin 27.6 pg (26-34); Mean Corpuscular Volume 86.4 fl (80-100); Mean Platelet Volume 8.7 fl (7.4-10.4); Monocytes Absolute Auto 0.8 K/mm3 (0.1-0.6); Monocytes Percent Auto 7.3 % (2.6-8.5); Neutrophils Absolute Auto 6.4 K/mm3 (1.3-6.7); Neutrophils Percent Auto 63.1 % (45.5-73.1); Platelet Count Result 305 k/mm3 (150-375); Red Blood Count 2.79 M/mm3 (4.2-5.4); Red Cell Distribution Width 14.6 % (11.5-14.5); White Blood Count 10.2 K/mm3 (4.5-10.0)
[2025-01-03 03:42] LABS: Alanine Aminotransferase 39 U/L (6-35); Albumin Level 3.3 g/dL (3.5-5.1); Alkaline Phosphatase 82 U/L (38-126); Anion Gap 5 mmol/L (4-12); Aspartate Amino Transferase 30 U/L (14-36); Bilirubin,Total 0.3 mg/dL (0.2-1.3); Blood Urea Nitrogen 6 mg/dL (7-17); Calcium 7.7 mg/dL (8.4-10.2); Carbon Dioxide 25 mmol/L (22-30); Chloride 111 mmol/L (98-107); Estimated CRCL calculation 68 ml/min; Estimated Glomerular Filt Rate 60; Glucose 111 mg/dL (65-110); Magnesium 2.2 mg/dL (1.6-2.3); Potassium 3.6 mmol/L (3.4-5.0); Sodium 141 mmol/L (137-145); Total Protein 5.9 g/dL (6.3-8.2)
[2025-01-03] MEDS: polyethylene glycoL 3350 238 GM BOTTLE 119 GM PO (05:00)
--- NOTE | 2025-01-03 06:41 | PC.NURSE ---
Patient is awake and pacing back and fourth in room(states for exercise). 200ml liq green stool noted (stool is starting to have some clearness). ALL colon oral prep completed. Will continue to monitor.
[2025-01-03] MEDS: WITCH HAZEL 40 PADS 1 PAD TOPICAL (12:43)
--- NOTE | 2025-01-03 13:24 | P.PNIM_ITS ---
Progress Note: A&P Assessment and Plan (1) GI (gastrointestinal bleed): Qualifiers: GI bleed type/associated pathology: unspecified gastrointestinal hemorrhage type Qualified Code(s): K92.2 - Gastrointestinal hemorrhage, unspecified Code(s): K92.2 - Gastrointestinal hemorrhage, unspecified Status: Acute Assessment and Plan: GI bleed for the past 2-3 weeks, bright red blood with small clots as well as a history of internal hemorrhoids leading to perception that bleeding is lower GI. GI has been consulted Plan for colonoscopy tomorrow- 01/04 NPO Patient transfused 2 units as hemoglobin initially 5.7, repeat 7.8, now 7.7 Iron studies completed and showed iron deficiency. Will start ferrous sulfate 325 mg p.o. t.i.d. Will continue to trend H&H Q4H until a.m. If patient hemoglobin continues to decline, continue H&H series. Transfuse if less than 7. Monitor hemodynamic stability. (2) Iron deficiency anemia: Qualifiers: Iron deficiency anemia type: chronic blood loss Qualified Code(s): D50.0 - Iron deficiency anemia secondary to blood loss (chronic) Code(s): D50.9 - Iron deficiency anemia, unspecified Status: Acute Assessment and Plan: See above (3) Hypertension: Qualifiers: Hypertension type: primary hypertension Qualified Code(s): I10 - Essential (primary) hypertension Code(s): I10 - Essential (primary) hypertension Status: Acute Assessment and Plan: Chronic, currently 150/67. Losartan held, plan for colonoscopy tomorrow. Resume postprocedure. Hydralazine p.r.n.. Plan Diet: Clear liquid, NPO midnight GI Prophylaxis: Not indicated DVT Prophylaxis: SCDs IV fluids: 2L bolus Lines/Tubes: Peripheral IV Code Status: Full code Time Spent With Patient Time with patient: 25 - 35 minutes Subjective Date/time seen: 01/03/25 13:24 Interval history: 54-year-old female with past medical history of MASH, rectus diastasis, adenomatous and serrated colon polyps, anxiety, hyperlipidemia and hypertension presents here with rectal bleeding. GI was consulted. Plan for colonoscopy tomorrow. Review of Systems Review of Systems: All systems reviewed & are unremarkable except as noted in HPI and below Exam Narrative: hyperactive BS in the RLQ otherwise normoactive. No tendy. Const: General: comfortable and no acute distress Other: , female, nontoxic appearance HENMT: Face/Nose/Sinus: Normal nares present Mouth: Yes moist mucous membranes Eyes: General: appearance normal, both eyes and all related structures Sclera: sclerae normal Pupils: Equal, round and reactive pupils present EOM: EOMs intact bilaterally Resp: Effort & Inspection: normal respiratory effort Auscultation: clear to auscultation bilaterally Cardio: Rate: regular rate Rhythm: regular rhythm Other: S1-S2 present without murmur, rub, ectopy GI: Other: Abdomen soft, nontender, nondistended. Hyperactive bowel sounds in the RLQ, normoactive bowel sounds in all other quadrants. Skin: General skin exam: normal color and no rashes or lesions noted Wounds: no wounds Neuro: Cranial nerves: Yes Equal, round and reactive pupils present Speech: normal speech Motor exam (neuro): 5/5 motor strength present throughout Sensory Exam: normal sensation Other: A&O x4 Extrem: General: normal to inspection Psych: Mental Status: mental status grossly normal Affect: normal affect Other: Good insight and judgment, very pleasant Objective Data Vital Signs Vital Signs: Vital Signs - 24 hr 01/02/25 13:30 01/02/25 13:31 01/02/25 13:45 Temperature Pulse Rate 88 87 86 Respiratory Rate 13 12 13 Blood Pressure 110/57 L 116/62 Pulse Oximetry 98 99 98 Oxygen Delivery 01/02/25 13:46 01/02/25 14:00 01/02/25 14:01 Temperature Pulse Rate 87 91 96 Respiratory Rate 12 12 19 Blood Pressure 119/71 Pulse Oximetry 98 99 100 Oxygen Delivery 01/02/25 14:15 01/02/25 14:16 01/02/25 14:30 Temperature Pulse Rate 91 94 88 Respiratory Rate 11 L 21 H 17 Blood Pressure 121/66 Pulse Oximetry 99 94 100 Oxygen Delivery 01/02/25 14:31 01/02/25 14:45 01/02/25 14:46 Temperature Pulse Rate 89 94 99 Respiratory Rate 17 17 28 H Blood Pressure 124/64 123/61 Pulse Oximetry 100 100 96 Oxygen Delivery 01/02/25 15:00 01/02/25 15:01 01/02/25 15:12 Temperature 99.0 F Pulse Rate 89 94 93 Respiratory Rate 18 18 17 Blood Pressure 126/68 126/68 Pulse Oximetry 100 100 100 Oxygen Delivery 01/02/25 15:28 01/02/25 16:28 01/02/25 16:50 Temperature 98.5 F 98 F Pulse Rate 88 88 Respiratory Rate 16 16 Blood Pressure 118/59 L 138/64 Pulse Oximetry 99 99 Oxygen Delivery Room Air 01/02/25 17:28 01/02/25 18:28 01/02/25 18:51 Temperature 98.0 F 98.0 F 98.0 F Pulse Rate 83 86 85 Respiratory Rate 17 17 16 Blood Pressure 125/48 L 137/64 138/60 Pulse Oximetry 99 99 99 Oxygen Delivery 01/02/25 20:00 01/02/25 21:59 01/03/25 06:00 Temperature 98.2 F 97.6 F Pulse Rate 91 91 87 Respiratory Rate 18 18 18 Blood Pressure 150/67 H 127/62 Pulse Oximetry 100 100 99 Oxygen Delivery Room Air 01/03/25 08:00 Temperature Pulse Rate Respiratory Rate Blood Pressure Pulse Oximetry Oxygen Delivery Room Air Intake/Output Intake/Output: Intake & Output 12/31/24 01/01/25 01/02/25 01/03/25 23:59 23:59 23:59 23:59 Intake Total 1700 1776 Output Total 0 400 Balance 1700 1376 Meds/Results Medications: Active Medications Generic Name Dose Route Start Last Admin Trade Name Freq PRN Reason Stop Dose Admin Acetaminophen 650 mg 01/02/25 15:02 Acetaminophen 325 Mg Tablet PO Q4H PRN Mild Pain (1-3) or Fever Atorvastatin Calcium 40 mg 01/03/25 09:00 Atorvastatin 40 Mg Tablet PO DAILY [facility] Ferrous Sulfate 325 mg 01/03/25 09:00 Ferrous Sulfate [address] PO TID [facility] Hydralazine HCl 10 mg 01/02/25 23:29 Hydralazine Hcl 20 Mg/Ml Vial IV PUSH Q8H PRN Blood Pressure - > 180/90 Multivitamins Therapeutic 1 tablet 01/03/25 09:00 Multivitamins Therapeutic Tab (*Bkc) PO DAILY [facility] Ondansetron HCl 4 mg 01/02/25 15:02 Ondansetron Inj 4 Mg/2 Ml Vial IV PUSH Q4H PRN Nausea Paroxetine HCl 10 mg 01/03/25 09:00 Paroxetine 10 Mg Tablet PO DAILY [facility] Gabo Davila 1 pad 01/03/25 12:29 01/03/25 12:43 Witch Lola 40 Pads TOPICAL 1 pad PRN PRN Administration Perineal Discomfort Radiology Results: ITS Impressions Abdomen/Pelvis CTA 01/02/25 13:16 IMPRESSION: 1. No evidence of appendicitis, diverticulitis or intestinal obstruction. No definite active bleeding seen. Clinical evaluation and if warranted colonoscopy is advised. 2. Bilateral adrenal adenomas. Further evaluation with dynamic CT or MRI is advised. Labs Labs: Laboratory Results - last 24 hr 01/02/25 01/02/25 01/02/25 10:09 10:10 13:19 WBC RBC Hgb Hct MCV MCH MCHC RDW Plt Count MPV Immature Gran % (Auto) Neut % (Auto) Lymph % (Auto) [place] % (Auto) Eos % (Auto) Baso % (Auto) Lymph # (Auto) [place] # (Auto) Eos # (Auto) Baso # (Auto) Abs Immat Gran (auto) Absolute Neuts (auto) Absolute Nucleated RBC Nucleated RBC % Sodium Potassium Chloride Carbon Dioxide Anion Gap BUN Creatinine Estim Creat Clear Calc Estimated GFR Glucose Lactic Acid 1.7 Calcium Magnesium TIBC 418 % Saturation 7 L Ferritin 7.47 L Total Bilirubin AST ALT Alkaline Phosphatase Troponin I < 0.012 Total Protein Albumin Blood Type O Positive Antibody Screen Negative Crossmatch See Detail 01/02/25 01/02/25 01/03/25 18:49 23:31 03:25 WBC 10.2 H RBC 2.79 L Hgb 7.8 L 7.5 L 7.7 L Hct 24.2 L 23.3 L 24.1 L MCV 86.4 MCH 27.6 D MCHC 32.0 RDW 14.6 H Plt Count 305 MPV 8.7 Immature Gran % (Auto) 0.3 Neut % (Auto) 63.1 Lymph % (Auto) 27.7 [place] % (Auto) 7.3 Eos % (Auto) 1.3 Baso % (Auto) 0.3 Lymph # (Auto) 2.83 [place] # (Auto) 0.8 H Eos # (Auto) 0.1 Baso # (Auto) 0.0 Abs Immat Gran (auto) 0.03 Absolute Neuts (auto) 6.4 Absolute Nucleated RBC 0.000 Nucleated RBC % 0.0 Sodium 141 Potassium 3.6 Chloride 111 H Carbon Dioxide 25 Anion Gap 5 BUN 6 L Creatinine 0.96 Estim Creat Clear Calc 68 Estimated GFR 60 Glucose 111 H Lactic Acid Calcium 7.7 L Magnesium 2.2 TIBC % Saturation Ferritin Total Bilirubin 0.3 AST 30 ALT 39 H Alkaline Phosphatase 82 Troponin I Total Protein 5.9 L Albumin 3.3 L Blood Type Antibody Screen Crossmatch Quality VTE Prophylaxis VTE prophylaxis: mechanical ordered
--- NOTE | 2025-01-03 14:00 | WPDANESEPPF ---
Anes - Initial Pre Proc Eval Procedure: Operation Date: 01/03/25 14:30 Proposed Procedures p EGD & Diagnostic Colonoscopy - Davie Faustin MD Date/Time: 01/03/25 14:00 Surgeon: Truman Chavez MD Pre Op Diagnosis: gi bleed,anemia requiring transfusion Patient Data Age: 54 Gender: F Height: 1.68 m Weight: 96 kg Last Vital Signs Temp 36.4 C 01/03/25 06:00 Pulse 87 01/03/25 06:00 Resp 18 01/03/25 06:00 BP 127/62 01/03/25 06:00 Pulse Ox 99 01/03/25 06:00 O2 Del Method Room Air 01/03/25 08:00 Allergies Allergy/AdvReac Type Severity Reaction Status Date / Time Tetanus Vaccines and Toxoid Allergy Intermediate Swelling Verified 11/07/24 09:30 Home Medications ?Medication ?Instructions ?Recorded ?Confirmed ?Type multivitamin 1 tablet PO DAILY 12/28/23 01/02/25 History atorvastatin 40 mg tablet 40 mg PO DAILY #90 tabs 07/17/24 01/02/25 Rx paroxetine HCl 10 mg tablet 10 mg PO DAILY #90 tabs 07/17/24 01/02/25 Rx losartan 100 mg tablet See Rx Instructions .Route 11/20/24 01/02/25 Rx .COMPLEX #30 tabs Laboratory Tests 01/02/25 01/02/25 01/02/25 10:09 10:10 18:49 WBC RBC Hgb 7.8 L g/dL (12.0-15.0) Hct 24.2 L % (37.0-47.0) MCV MCH MCHC RDW Plt Count MPV Immature Gran % (Auto) Neut % (Auto) Lymph % (Auto) [place] % (Auto) Eos % (Auto) Baso % (Auto) Lymph # (Auto) [place] # (Auto) Eos # (Auto) Baso # (Auto) Abs Immat Gran (auto) Absolute Neuts (auto) Absolute Nucleated RBC Nucleated RBC % Sodium Potassium Chloride Carbon Dioxide Anion Gap BUN Creatinine Estim Creat Clear Calc Estimated GFR Glucose Calcium Magnesium Ferritin 7.47 L ng/mL (11.1-264) Total Bilirubin AST ALT Alkaline Phosphatase Total Protein Albumin Blood Type O Positive Antibody Screen Negative Crossmatch See Detail 01/02/25 01/03/25 23:31 03:25 WBC 10.2 H K/mm3 (4.5-10.0) RBC 2.79 L M/mm3 (4.2-5.4) Hgb 7.5 L g/dL 7.7 L g/dL (12.0-15.0) (12.0-15.0) Hct 23.3 L % 24.1 L % (37.0-47.0) (37.0-47.0) MCV 86.4 fl (80-100) MCH 27.6 D pg (26-34) MCHC 32.0 g/dl (32-36) RDW 14.6 H % (11.5-14.5) Plt Count 305 k/mm3 (150-375) MPV 8.7 fl (7.4-10.4) Immature Gran % (Auto) 0.3 % (0-0.5) Neut % (Auto) 63.1 % (45.5-73.1) Lymph % (Auto) 27.7 % (18.3-44.2) [place] % (Auto) 7.3 % (2.6-8.5) Eos % (Auto) 1.3 % (0-4.4) Baso % (Auto) 0.3 % (0.2-1.2) Lymph # (Auto) 2.83 K/mm3 (0.9-3.2) [place] # (Auto) 0.8 H K/mm3 (0.1-0.6) Eos # (Auto) 0.1 K/mm3 (0-0.3) Baso # (Auto) 0.0 K/mm3 (0.0-0.1) Abs Immat Gran (auto) 0.03 K/mm3 (0.00-0.031) Absolute Neuts (auto) 6.4 K/mm3 (1.3-6.7) Absolute Nucleated RBC 0.000 K/mm3 (0.0-0.012) Nucleated RBC % 0.0 % (0.0-0.2) Sodium 141 mmol/L (137-145) Potassium 3.6 mmol/L (3.4-5.0) Chloride 111 H mmol/L (98-107) Carbon Dioxide 25 mmol/L (22-30) Anion Gap 5 mmol/L (4-12) BUN 6 L mg/dL (7-17) Creatinine 0.96 mg/dL (0.7-1.0) Estim Creat Clear Calc 68 ml/min Estimated GFR 60 (59 - ) Glucose 111 H mg/dL (65-110) Calcium 7.7 L mg/dL (8.4-10.2) Magnesium 2.2 mg/dL (1.6-2.3) Ferritin Total Bilirubin 0.3 mg/dL (0.2-1.3) AST 30 U/L (14-36) ALT 39 H U/L (6-35) Alkaline Phosphatase 82 U/L (38-126) Total Protein 5.9 L g/dL (6.3-8.2) Albumin 3.3 L g/dL (3.5-5.1) Blood Type Antibody Screen Crossmatch Patient hx anesthesia problems: none Family hx anesthesia problems: none Results Review: All pre-operative results and documents have been reviewed as part of the pre-operative evaluation. [facility] Past Medical History Medical History Morbid obesity Metabolic dysfunction-associated steatohepatitis (MASH) Personal history of adenomatous and serrated colon polyps Abnormal glucose Screening for colorectal cancer Rectus diastasis Anxiety Hyperlipidemia Hypertension Surgical History Surgical History History of hysterectomy 04/11/2014 History of cholecystectomy 1997 History of section 1997 History of tonsillectomy 1986 History of cervical cone biopsy affecting care of mother, antepartum 80s-90s Family History Family History Father Hypertension Mother Hypertension Grandparent Diabetes mellitus Cerebrovascular accident Social History Social History Smoking packs per day: 1 Smoking cigarettes per day: 20.0 Years smoked: 30 Smoking pack-years: 30.00 Smoking status: Former smoker Alcohol intake: current Alcohol use details: couple times a year Substance use: never Substance use type: does not use Do You Feel Safe in your Home?: Yes Lack of Transportation: No Lack of Food: Never True Current Housing: I Have Housing Concerned About Future Housing: No Difficulty Paying Gas/Electric Bills: No Difficulty Paying for Meds: No Currently Unemployed: No Education: Trade/Vocational Certificate Difficulty w/ Childcare or Family Care: No Living arrangements: with family Occupation/Education: occupation 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 Gender identity (if verbalized by the patient): Female Sexual Orientation (if Verbalized by the Patient): Straight or Heterosexual Spiritual care concerns: No Anes - Eval Final PreProcedure Day of Procedure 01/03/25 14:00 Patient weight: obese Heart: regular rate and rhythm Lungs: clear to auscultation Airway: Mallampati scale class II Neurological: alert and oriented Last oral intake: >/= 8 hours ASA classification: III Emergent: no Anesthetic plan: proceed Anesthesia type and monitoring: general GIVS and standard monitoring Results Review: All pre-operative results and documents have been reviewed as part of the pre-operative evaluation. Informed Consent: The patient's anesthetic plan and its attendant risks and benefits were discussed with the patient/family/POA. Questions were solicited and answers provided to the satisfaction of the patient/family/POA.
--- NOTE | 2025-01-03 14:02 | PC.NURSE ---
to GI lab via stretcher
[2025-01-03] MEDS: LACTATED RINGERS 1,000 ML 150 ML IV CONT (14:22)
[2025-01-03] MEDS: SIMETHICONE ORAL SUSPENSION 20 MG/0.3 ML 30 ML BOTTLE 1.8 ML PO (14:24)
--- NOTE | 2025-01-03 15:45 | SUR.OPER ---
EGD COMPLETED AT 1541, COLONOSCOPY STARTED AT 1546
[2025-01-03] MEDS: SIMETHICONE ORAL SUSPENSION 20 MG/0.3 ML 30 ML BOTTLE 0.6 ML PO (15:51)
--- NOTE | 2025-01-03 16:01 | P.PNGI_ITS ---
Progress Note: A&P Assessment and Plan (1) Thrombosed hemorrhoids: Code(s): K64.5 - Perianal venous thrombosis Status: Acute Assessment and Plan: See colonoscopy report. Hemorrhoids other cause of rectal bleeding and anemia. She will need surgical evaluation before being discharged home. Subjective Date/time seen: 01/03/25 16:01 Objective Data Vital Signs Vital Signs: Vital Signs - 24 hr 01/02/25 16:28 01/02/25 16:50 01/02/25 17:28 Temperature 98 F 98.0 F Pulse Rate 88 83 Respiratory Rate 16 17 Blood Pressure 138/64 125/48 L Pulse Oximetry 99 99 Oxygen Delivery Room Air 01/02/25 18:28 01/02/25 18:51 01/02/25 20:00 Temperature 98.0 F 98.0 F Pulse Rate 86 85 91 Respiratory Rate 17 16 18 Blood Pressure 137/64 138/60 Pulse Oximetry 99 99 100 Oxygen Delivery Room Air 01/02/25 21:59 01/03/25 06:00 01/03/25 08:00 Temperature 98.2 F 97.6 F Pulse Rate 91 87 Respiratory Rate 18 18 Blood Pressure 150/67 H 127/62 Pulse Oximetry 100 99 Oxygen Delivery Room Air 01/03/25 14:19 Temperature 98 F Pulse Rate 97 Respiratory Rate 18 Blood Pressure 142/77 H Pulse Oximetry 100 Oxygen Delivery Room Air Intake/Output Intake/Output: Intake & Output 12/31/24 01/01/25 01/02/25 01/03/25 23:59 23:59 23:59 23:59 Intake Total 1700 2011 Output Total 0 400 Balance 1700 1611 Meds/Results Medications: Active Medications Generic Name Dose Route Start Last Admin Trade Name Freq PRN Reason Stop Dose Admin Acetaminophen 650 mg 01/02/25 15:02 Acetaminophen 325 Mg Tablet PO Q4H PRN Mild Pain (1-3) or Fever Atorvastatin Calcium 40 mg 01/03/25 09:00 Atorvastatin 40 Mg Tablet PO DAILY [facility] Ferrous Sulfate 325 mg 01/03/25 09:00 Ferrous Sulfate [address] PO TID [facility] Hydralazine HCl 10 mg 01/02/25 23:29 Hydralazine Hcl 20 Mg/Ml Vial IV PUSH Q8H PRN Blood Pressure - > 180/90 Lactated Ringer's 1,000 mls @ 150 mls/hr 01/03/25 14:15 01/03/25 15:56 Lr - Lactated Ringers Iv IV CONT 150 mls/hr .[id number] [facility] Infusion Multivitamins Therapeutic 1 tablet 01/03/25 09:00 Multivitamins Therapeutic Tab (*Bkc) PO DAILY [facility] Ondansetron HCl 4 mg 01/02/25 15:02 Ondansetron Inj 4 Mg/2 Ml Vial IV PUSH Q4H PRN Nausea Paroxetine HCl 10 mg 01/03/25 09:00 Paroxetine 10 Mg Tablet PO DAILY [facility] Simethicone 0.6 ml 01/03/25 15:50 01/03/25 15:51 Simethicone Oral Suspension 20 Mg/0.3 Ml 30 Ml Bottle PO 0.6 ml ONCE PRN Administration Gas Discomfort Witch Lola 1 pad 01/03/25 12:29 01/03/25 12:43 Witch Lola 40 Pads TOPICAL 1 pad PRN PRN Administration Perineal Discomfort Radiology Results: ITS Impressions Abdomen/Pelvis CTA 01/02/25 13:16 IMPRESSION: 1. No evidence of appendicitis, diverticulitis or intestinal obstruction. No definite active bleeding seen. Clinical evaluation and if warranted colonoscopy is advised. 2. Bilateral adrenal adenomas. Further evaluation with dynamic CT or MRI is advised. Labs Labs: Laboratory Results - last 24 hr 01/02/25 01/02/25 01/02/25 10:10 18:49 23:31 WBC RBC Hgb 7.8 L 7.5 L Hct 24.2 L 23.3 L MCV MCH MCHC RDW Plt Count MPV Immature Gran % (Auto) Neut % (Auto) Lymph % (Auto) [place] % (Auto) Eos % (Auto) Baso % (Auto) Lymph # (Auto) [place] # (Auto) Eos # (Auto) Baso # (Auto) Abs Immat Gran (auto) Absolute Neuts (auto) Absolute Nucleated RBC Nucleated RBC % Sodium Potassium Chloride Carbon Dioxide Anion Gap BUN Creatinine Estim Creat Clear Calc Estimated GFR Glucose Calcium Magnesium Total Bilirubin AST ALT Alkaline Phosphatase Total Protein Albumin Crossmatch See Detail 01/03/25 03:25 WBC 10.2 H RBC 2.79 L Hgb 7.7 L Hct 24.1 L MCV 86.4 MCH 27.6 D MCHC 32.0 RDW 14.6 H Plt Count 305 MPV 8.7 Immature Gran % (Auto) 0.3 Neut % (Auto) 63.1 Lymph % (Auto) 27.7 [place] % (Auto) 7.3 Eos % (Auto) 1.3 Baso % (Auto) 0.3 Lymph # (Auto) 2.83 [place] # (Auto) 0.8 H Eos # (Auto) 0.1 Baso # (Auto) 0.0 Abs Immat Gran (auto) 0.03 Absolute Neuts (auto) 6.4 Absolute Nucleated RBC 0.000 Nucleated RBC % 0.0 Sodium 141 Potassium 3.6 Chloride 111 H Carbon Dioxide 25 Anion Gap 5 BUN 6 L Creatinine 0.96 Estim Creat Clear Calc 68 Estimated GFR 60 Glucose 111 H Calcium 7.7 L Magnesium 2.2 Total Bilirubin 0.3 AST 30 ALT 39 H Alkaline Phosphatase 82 Total Protein 5.9 L Albumin 3.3 L Crossmatch
--- NOTE | 2025-01-03 16:38 | PC.NURSE ---
pt returned from GI lab, resting comfortably
[2025-01-03] MEDS: PARoxetine 10 MG TABLET PO (17:29)
[2025-01-03] MEDS: MULTIVITAMINS THERAPEUTIC TAB (*BKC) 1 TABLET PO (17:30)
[2025-01-03] MEDS: ATORVASTATIN 40 MG TABLET PO (17:30)
[2025-01-03] MEDS: FERROUS SULFATE 325 MG TABLET DR PO (17:30)
[2025-01-04] VITALS (14 sets, daily range): BP systolic 139–189; BP diastolic 61–98; PULSE 90–105; RESP 14–18; TEMP 36.2–37.1; O2SAT 88–100
--- NOTE | 2025-01-04 08:30 | PM.IMPN ---
Progress Note: A&P Assessment and Plan (1) GI (gastrointestinal bleed): Qualifiers: GI bleed type/associated pathology: unspecified gastrointestinal hemorrhage type Qualified Code(s): K92.2 - Gastrointestinal hemorrhage, unspecified Code(s): K92.2 - Gastrointestinal hemorrhage, unspecified Status: Acute Assessment and Plan: GI bleed for the past 2-3 weeks, bright red blood with small clots as well as a history of internal hemorrhoids leading to perception that bleeding is lower GI. H/H remains stable, continue to monitor Pantoprazole BID Diet: NPO, resume diet after procedure DVT Px: SCDs. Avoid anti-coagulations Monitor serum electrolytes, CBC, hemoglobin/hematocrit q.8 hours. If hemoglobin drops below 7 transfuse packed red blood cells Monitor for bloody bowel movements,chest pain,SOB or dizziness/lightheadedness GI consulted s/p EGD and colonoscopy on 01/[address] Faustin EGD normal Colonoscopy showed internal hemorrhoids, recommend surgical consult. Consult placed. Surgery consulted plan for hemorrhoidectomy today with Dr. De Leon (2) Internal hemorrhoids: Code(s): K64.8 - Other hemorrhoids Status: Acute Assessment and Plan: Colonoscopy showed internal hemorrhoids, recommend surgical consult. Consult placed. Plan for hemorrhoidectomy today with Dr. De Leon (3) Iron deficiency anemia: Qualifiers: Iron deficiency anemia type: chronic blood loss Qualified Code(s): D50.0 - Iron deficiency anemia secondary to blood loss (chronic) Code(s): D50.9 - Iron deficiency anemia, unspecified Status: Acute Assessment and Plan: Patient transfused 2 units as hemoglobin initially 5.7 on admission, repeat 7.8 Iron studies completed and showed iron deficiency. Will start ferrous sulfate 325 mg p.o. t.i.d. Will continue to trend H&H Q4H until a.m. If patient hemoglobin continues to decline, continue H&H series. Transfuse if less than 7. Monitor hemodynamic stability. (4) Hypertension: Qualifiers: Hypertension type: primary hypertension Qualified Code(s): I10 - Essential (primary) hypertension Code(s): I10 - Essential (primary) hypertension Status: Acute Assessment and Plan: Chronic, continue home medications. Losartan held for surgery. Resume postprocedure. Hydralazine p.r.n.. Time Spent With Patient Time with patient: 25 - 35 minutes Subjective Date/time seen: 01/04/25 08:30 Interval history: 54-year-old female with past medical history of MASH, rectus diastasis, adenomatous and serrated colon polyps, anxiety, hyperlipidemia and hypertension presents to the hospital with rectal bleeding. Patient is pleasant lying on her side. She continues to endorse rectal pressure and pain. She states that her pain is well controlled on the current regimen. She denies any rectal bleeding since admission. She has no other complaints denying chest pain, palpitations, shortness of breath, nausea/vomiting and abdominal pain. Plan for hemorrhoidectomy today with Dr. De Leon. Review of Systems Review of Systems: All systems reviewed & are unremarkable except as noted in HPI and below Exam Narrative: AF HR 97 RR 16 SpO2 100 BP 139/71 General: female in no acute respiratory distress who is nontoxic appearing, lying on her side HEENT: Normocephalic. Atraumatic. Extraocular movement intact. Sclera clear and anicteric. No facial asymmetry. Chest: Lungs are clear to auscultation bilaterally. No wheezes or crackles. CV: Heart was regular rate and rhythm. Abd: Abdomen was soft. Nontender. Nondistended. Positive bowel sounds. Ext: No clubbing, cyanosis, or edema. DP pulses bilaterally. Neuro: Patient is alert and oriented x4. Speech is clear. Objective Data Vital Signs Vital Signs: Vital Signs - 24 hr 01/03/25 14:00 01/03/25 14:19 01/03/25 15:53 Temperature 97.6 F 98 F Pulse Rate 82 97 88 Respiratory Rate 16 18 18 Blood Pressure 148/70 H 142/77 H 148/74 H Pulse Oximetry 100 100 92 Oxygen Delivery Room Air Room Air 01/03/25 16:03 01/03/25 16:13 01/03/25 20:00 Temperature Pulse Rate 83 88 94 Respiratory Rate 16 23 H 18 Blood Pressure 125/68 126/98 H Pulse Oximetry 96 98 99 Oxygen Delivery Room Air Room Air Room Air 01/03/25 21:58 01/04/25 05:20 Temperature 98.2 F 98.1 F Pulse Rate 94 97 Respiratory Rate 16 16 Blood Pressure 151/64 H 139/71 Pulse Oximetry 99 100 Oxygen Delivery Intake/Output Intake/Output: Intake & Output 01/01/25 01/02/25 01/03/25 01/04/25 23:59 23:59 23:59 23:59 Intake Total 1700 2251 200 Output Total 0 400 Balance 1700 1851 200 Meds/Results Medications: Active Medications Generic Name Dose Route Start Last Admin Trade Name Freq PRN Reason Stop Dose Admin Acetaminophen 650 mg 01/02/25 15:02 Acetaminophen 325 Mg Tablet PO Q4H PRN Mild Pain (1-3) or Fever Atorvastatin Calcium 40 mg 01/03/25 09:00 01/03/25 17:30 Atorvastatin 40 Mg Tablet PO 40 mg DAILY MAYRA Administration Ferrous Sulfate 325 mg 01/03/25 09:00 01/03/25 17:30 Ferrous Sulfate [address] PO 325 mg TID MAYRA Administration Hydralazine HCl 10 mg 01/02/25 23:29 Hydralazine Hcl 20 Mg/Ml Vial IV PUSH Q8H PRN Blood Pressure - > 180/90 Multivitamins Therapeutic 1 tablet 01/03/25 09:00 01/03/25 17:30 Multivitamins Therapeutic Tab (*Bkc) PO 1 tablet DAILY MAYRA Administration Ondansetron HCl 4 mg 01/02/25 15:02 Ondansetron Inj 4 Mg/2 Ml Vial IV PUSH Q4H PRN Nausea Paroxetine HCl 10 mg 01/03/25 09:00 01/03/25 17:29 Paroxetine 10 Mg Tablet PO 10 mg DAILY MAYRA Administration Simethicone 0.6 ml 01/03/25 15:50 01/03/25 15:51 Simethicone Oral Suspension 20 Mg/0.3 Ml 30 Ml Bottle PO 0.6 ml ONCE PRN Administration Gas Discomfort Witch Lola 1 pad 01/03/25 12:29 01/03/25 12:43 Witch Lola 40 Pads TOPICAL 1 pad PRN PRN Administration Perineal Discomfort Radiology Results: ITS Impressions Abdomen/Pelvis CTA 01/02/25 13:16 IMPRESSION: 1. No evidence of appendicitis, diverticulitis or intestinal obstruction. No definite active bleeding seen. Clinical evaluation and if warranted colonoscopy is advised. 2. Bilateral adrenal adenomas. Further evaluation with dynamic CT or MRI is advised. Quality VTE Prophylaxis VTE prophylaxis: mechanical ordered
[2025-01-04 08:50] LABS: Hematocrit 25.1 % (37.0-47.0); Hemoglobin 8.1 g/dL (12.0-15.0); Mean Corpuscular HGB Conc 32.3 g/dl (32-36); Mean Corpuscular Hemoglobin 27.9 pg (26-34); Mean Corpuscular Volume 86.6 fl (80-100); Mean Platelet Volume 8.5 fl (7.4-10.4); Platelet Count Result 340 k/mm3 (150-375); Red Cell Distribution Width 14.4 % (11.5-14.5); White Blood Count 10.8 K/mm3 (4.5-10.0)
--- NOTE | 2025-01-04 08:53 | PM.CNGS ---
Assessment and Plan Assessment and plan (1) Grade IV internal hemorrhoids: Code(s): K64.3 - Fourth degree hemorrhoids Status: Acute Assessment and Plan: I reviewed the endoscopy reports and images and assessed the patient. Patient has evidence of prolapsing internal hemorrhoids that are unable to be reduced. She also has enlarged and edematous external hemorrhoids. I have recommended internal and external hemorrhoidectomy to prevent any recurrent bleeding long-term in the future. I have discussed the procedure, risks, benefits, and alternatives. Questions were answered. (2) Thrombosed hemorrhoids: Code(s): K64.5 - Perianal venous thrombosis Status: Acute (3) Iron deficiency anemia: Qualifiers: Iron deficiency anemia type: chronic blood loss Qualified Code(s): D50.0 - Iron deficiency anemia secondary to blood loss (chronic) Code(s): D50.9 - Iron deficiency anemia, unspecified Status: Acute (4) Hypertension: Qualifiers: Hypertension type: primary hypertension Qualified Code(s): I10 - Essential (primary) hypertension Code(s): I10 - Essential (primary) hypertension Status: Acute History of Present Illness Consult details Consult date: 01/04/25 Reason for consult: other (hemorrhoids) Requesting physician: Davie Faustin MD Narrative: This is a 54-year-old woman who I am asked to see for bleeding hemorrhoids. She presented to the emergency department on 01/02/2025 with rectal bleeding and anemia. She states that she has been having rectal bleeding with every bowel movement for the past 2 weeks. She has had intermittent rectal bleeding periodically before that. She states that it typically would only last 2 or 3 days and then resolve. She denies any significant issues with constipation. Her bleeding has stopped since being admitted but now she is experiencing significant pain and pressure at her anus. She underwent EGD and colonoscopy yesterday. Endoscopies were unremarkable other than prolapsing internal hemorrhoids. She denies any prior treatment or any prior history of bleeding disorders. Review of Systems Review of Systems: All systems reviewed & are unremarkable except as noted in HPI and below Eyes: Eyes: Denies change in vision ENT: Denies hearing loss, Denies neck pain and Denies sore throat Cardiovascular: Cardiovascular: Denies chest pain and Denies dyspnea Respiratory: Respiratory: Denies cough, Denies dyspnea and Denies wheezing Gastrointestinal: Gastrointestinal: Reports as per HPI Genitourinary: Genitourinary: Denies hematuria and Denies dysuria Musculoskeletal: Musculoskeletal: Denies arthralgias, Denies joint swelling and Denies neck pain Allergic/Immunologic: Allergic/Immunologic: Denies wheezing FOR[facility]LY [facility] Past Medical History Medical History Morbid obesity Metabolic dysfunction-associated steatohepatitis (MASH) Personal history of adenomatous and serrated colon polyps Abnormal glucose Screening for colorectal cancer Rectus diastasis Anxiety Hyperlipidemia Hypertension Surgical History Surgical History History of hysterectomy 04/11/2014 History of cholecystectomy 1997 History of section 1997 History of tonsillectomy 1986 History of cervical cone biopsy affecting care of mother, antepartum 80s-90s Family History Family History Father Hypertension Mother Hypertension Grandparent Diabetes mellitus Cerebrovascular accident Social History Social History Smoking packs per day: 1 Smoking cigarettes per day: 20.0 Years smoked: 30 Smoking pack-years: 30.00 Smoking status: Former smoker Alcohol intake: current Alcohol use details: couple times a year Substance use: never Substance use type: does not use Do You Feel Safe in your Home?: Yes Lack of Transportation: No Lack of Food: Never True Current Housing: I Have Housing Concerned About Future Housing: No Difficulty Paying Gas/Electric Bills: No Difficulty Paying for Meds: No Currently Unemployed: No Education: Trade/Vocational Certificate Difficulty w/ Childcare or Family Care: No Living arrangements: with family Occupation/Education: occupation 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 Gender identity (if verbalized by the patient): Female Sexual Orientation (if Verbalized by the Patient): Straight or Heterosexual Spiritual care concerns: No Meds Home Medications and Allergies Home Medications ?Medication ?Instructions ?Recorded ?Confirmed ?Type multivitamin 1 tablet PO DAILY 12/28/23 01/02/25 History atorvastatin 40 mg tablet 40 mg PO DAILY #90 tabs 07/17/24 01/02/25 Rx paroxetine HCl 10 mg tablet 10 mg PO DAILY #90 tabs 07/17/24 01/02/25 Rx losartan 100 mg tablet See Rx Instructions .Route 11/20/24 01/02/25 Rx .COMPLEX #30 tabs Allergies Allergy/AdvReac Type Severity Reaction Status Date / Time Tetanus Vaccines and Toxoid Allergy Intermediate Swelling Verified 11/07/24 09:30 Vital Signs Vital Signs - 24 hr 01/03/25 14:00 01/03/25 14:19 01/03/25 15:53 Temperature 97.6 F 98 F Pulse Rate 82 97 88 Respiratory Rate 16 18 18 Blood Pressure 148/70 H 142/77 H 148/74 H Pulse Oximetry 100 100 92 Oxygen Delivery Room Air Room Air 01/03/25 16:03 01/03/25 16:13 01/03/25 20:00 Temperature Pulse Rate 83 88 94 Respiratory Rate 16 23 H 18 Blood Pressure 125/68 126/98 H Pulse Oximetry 96 98 99 Oxygen Delivery Room Air Room Air Room Air 01/03/25 21:58 01/04/25 05:20 Temperature 98.2 F 98.1 F Pulse Rate 94 97 Respiratory Rate 16 16 Blood Pressure 151/64 H 139/71 Pulse Oximetry 99 100 Oxygen Delivery Exam Const: General: alert; No acute distress Orientation/consciousness: patient oriented x3 Limitations: no limitations HENMT: Head: normocephalic and atraumatic Ears: hearing grossly normal bilaterally Face/Nose/Sinus: Normal external nose present and Normal nares present Mouth: Yes Normal oral and palatal mucosa present and Yes moist mucous membranes Eyes: General: appearance normal, both eyes and all related structures Conjunctivae: conjunctivae normal Sclera: sclerae normal Pupils: Equal, round and reactive pupils present EOM: EOMs intact bilaterally Neck: Neck: normal visual inspection, full ROM, no lymphadenopathy, supple and no JVD Lymphatic: no lymphadenopathy noted Chest: Chest palpation & inspection: normal inspection of the chest Resp: Effort & Inspection: normal respiratory effort and able to speak in complete sentences Auscultation: clear to auscultation bilaterally Percussion: percussion normal Cardio: Jugular venous distension: no JVD Rate: regular rate Rhythm: regular rhythm Heart sounds: S1 normal heart sound present and S2 normal heart sound present Peripheral pulses: Peripheral pulses 2+ throughout GI: Inspection: normal to inspection Auscultation: normal bowel sounds Rectal Exam: External hemorrhoid(s) present and Internal hemorrhoid(s) present Other: Prolapsing grade 4 internal hemorrhoids identified as well as enlarged and edematous external hemorrhoids. Slight ulceration noted on prolapsing internal hemorrhoids. : General: Yes no CVA tenderness Back/Spine/Pelvis: Back: no CVA tenderness Skin: General skin exam: normal color and dry skin Neuro: General: patient oriented x3, gait normal, moves all extremities, no focal motor deficits and CN's II-XI intact bilaterally Cranial nerves: Yes Equal, round and reactive pupils present Speech: normal speech Extrem: General: normal to inspection and capillary refill normal Results Labs 01/04/25 08:41 01/03/25 03:25 Labs: Abnormal lab results 01/04/25 Range/Units 08:41 WBC 10.8 H (4.5-10.0) K/mm3 RBC 2.90 L (4.2-5.4) M/mm3 Hgb 8.1 L (12.0-15.0) g/dL Hct 25.1 L (37.0-47.0) % All other labs normal. Imaging Additional studies: ITS Impressions Abdomen/Pelvis CTA 01/02/25 13:16 IMPRESSION: 1. No evidence of appendicitis, diverticulitis or intestinal obstruction. No definite active bleeding seen. Clinical evaluation and if warranted colonoscopy is advised. 2. Bilateral adrenal adenomas. Further evaluation with dynamic CT or MRI is advised.
[2025-01-04 09:03] LABS: Alanine Aminotransferase 38 U/L (6-35); Albumin Level 3.3 g/dL (3.5-5.1); Alkaline Phosphatase 91 U/L (38-126); Anion Gap 7 mmol/L (4-12); Aspartate Amino Transferase 30 U/L (14-36); Bilirubin,Total 0.2 mg/dL (0.2-1.3); Blood Urea Nitrogen 10 mg/dL (7-17); Calcium 8.2 mg/dL (8.4-10.2); Carbon Dioxide 25 mmol/L (22-30); Chloride 108 mmol/L (98-107); Estimated CRCL calculation 76 ml/min; Estimated Glomerular Filt Rate > 60; Glucose 133 mg/dL (65-110); Potassium 3.7 mmol/L (3.4-5.0); Sodium 140 mmol/L (137-145); Total Protein 6.1 g/dL (6.3-8.2)
--- NOTE | 2025-01-04 09:10 | WPDHPUPDATE1 ---
History and Physical Update Update Date/Time: 01/04/25 09:10 History and Physical has been reviewed, including an updated exam of the patient. There are NO changes in the patient's condition. Risks, benefits, and alternatives have been discussed and questions answered. Patient agrees to proceed with procedure.
[2025-01-04] MEDS: MORPHINE SULFATE (*CRX) 2 MG/ML INJ IV PUSH (11:36)
--- NOTE | 2025-01-04 11:56 | PC.NURSE ---
pt to surgery via stretcher, reviewed plan of care with pt and family, consent previously obtained
[2025-01-04] MEDS: LACTATED RINGERS 1,000 ML 30 ML IV CONT (12:00)
--- NOTE | 2025-01-04 12:33 | P.PNAN_ITS ---
Anes - Initial Pre Proc Eval Procedure: Operation Date: 01/03/25 14:30 Proposed Procedures p EGD & Diagnostic Colonoscopy - Davie Faustin MD Operation Date: 01/04/25 18:30 Proposed Procedures p Internal and External Hemorrhoidectomy - Israel De Leon DO Date/Time: 01/04/25 12:33 Surgeon: Truman Chavez MD Pre Op Diagnosis: gi bleed,anemia requiring transfusion Patient Data Age: 54 Gender: F Height: 1.68 m Weight: 96 kg Last Vital Signs Temp 36.7 C 01/04/25 05:20 Pulse 97 01/04/25 05:20 Resp 16 01/04/25 05:20 BP 139/71 01/04/25 05:20 Pulse Ox 98 01/04/25 09:11 O2 Del Method Room Air 01/04/25 09:11 Allergies Allergy/AdvReac Type Severity Reaction Status Date / Time Tetanus Vaccines and Toxoid Allergy Intermediate Swelling Verified 11/07/24 09:30 Home Medications ?Medication ?Instructions ?Recorded ?Confirmed ?Type multivitamin 1 tablet PO DAILY 12/28/23 01/02/25 History atorvastatin 40 mg tablet 40 mg PO DAILY #90 tabs 07/17/24 01/02/25 Rx paroxetine HCl 10 mg tablet 10 mg PO DAILY #90 tabs 07/17/24 01/02/25 Rx losartan 100 mg tablet See Rx Instructions .Route 11/20/24 01/02/25 Rx .COMPLEX #30 tabs Laboratory Tests 01/04/25 08:41 WBC 10.8 H K/mm3 (4.5-10.0) RBC 2.90 L M/mm3 (4.2-5.4) Hgb 8.1 L g/dL (12.0-15.0) Hct 25.1 L % (37.0-47.0) MCV 86.6 fl (80-100) MCH 27.9 pg (26-34) MCHC 32.3 g/dl (32-36) RDW 14.4 % (11.5-14.5) Plt Count 340 k/mm3 (150-375) MPV 8.5 fl (7.4-10.4) Sodium 140 mmol/L (137-145) Potassium 3.7 mmol/L (3.4-5.0) Chloride 108 H mmol/L (98-107) Carbon Dioxide 25 mmol/L (22-30) Anion Gap 7 mmol/L (4-12) BUN 10 mg/dL (7-17) Creatinine 0.86 mg/dL (0.7-1.0) Estim Creat Clear Calc 76 ml/min Estimated GFR > 60 (59 - ) Glucose 133 H mg/dL (65-110) Calcium 8.2 L mg/dL (8.4-10.2) Total Bilirubin 0.2 mg/dL (0.2-1.3) AST 30 U/L (14-36) ALT 38 H U/L (6-35) Alkaline Phosphatase 91 U/L (38-126) Total Protein 6.1 L g/dL (6.3-8.2) Albumin 3.3 L g/dL (3.5-5.1) Patient hx anesthesia problems: none Family hx anesthesia problems: none Results Review: All pre-operative results and documents have been reviewed as part of the pre- operative evaluation. FORMERLY [facility] Past Medical History Medical History (Updated 01/04/25 @ 09:08 by Israel De Leon DO) Morbid obesity Metabolic dysfunction-associated steatohepatitis (MASH) Personal history of adenomatous and serrated colon polyps Abnormal glucose Screening for colorectal cancer Rectus diastasis Anxiety Hyperlipidemia Hypertension Surgical History Surgical History (Updated 01/04/25 @ 11:03 by Lizbeth Garcia MD) History of colonoscopy January 2024, [facility] History of hysterectomy 04/11/2014 History of cholecystectomy 1997 History of section 1997 History of tonsillectomy 1986 History of cervical cone biopsy affecting care of mother, antepartum 80s-90s Family History Family History Father Hypertension Mother Hypertension Grandparent Diabetes mellitus Cerebrovascular accident Social History Social History Smoking packs per day: 1 Smoking cigarettes per day: 20.0 Years smoked: 30 Smoking pack-years: 30.00 Smoking status: Former smoker Alcohol intake: current Alcohol use details: couple times a year Substance use: never Substance use type: does not use Do You Feel Safe in your Home?: Yes Lack of Transportation: No Lack of Food: Never True Current Housing: I Have Housing Concerned About Future Housing: No Difficulty Paying Gas/Electric Bills: No Difficulty Paying for Meds: No Currently Unemployed: No Education: Trade/Vocational Certificate Difficulty w/ Childcare or Family Care: No Living arrangements: with family Occupation/Education: occupation 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 Gender identity (if verbalized by the patient): Female Sexual Orientation (if Verbalized by the Patient): Straight or Heterosexual Spiritual care concerns: No Anes - Eval Final PreProcedure Day of Procedure 01/04/25 12:33 Patient weight: obese Heart: regular rate and rhythm Lungs: decreased breath sounds Airway: Mallampati scale class III Neurological: alert and oriented Last oral intake: >/= 8 hours ASA classification: III Emergent: no Anesthetic plan: proceed Anesthesia type and monitoring: general ETT and standard monitoring Results Review: All pre-operative results and documents have been reviewed as part of the pre- operative evaluation. Informed Consent: The patient's anesthetic plan and its attendant risks and benefits were discussed with the patient/family/POA. Questions were solicited and answers provided to the satisfaction of the patient/family/POA.
--- NOTE | 2025-01-04 13:39 | S_PTH ---
PATIENT: Katina Jaimes LOC: [id number] #:[id number] AGE/SX: 54/F ROOM: 249 RE01/04/[address]: Mahi Win PA-C : 1970 BED: 01 DIS: 01/05/2025 SPEC #: [id number] RECD: 01/05/25 10:20 STATUS: TAWANDA REMargret #: [id number] FREDI: 01/04/25 13:[address]: Israel De Leon DEPT: [facility] Surgical RECD BY: Rosa Muñoz ENTERED: 01/05/25 10:21 SP TYPE: Surgical OTHR DR: MD Hema Moe MD Izabella L. Perkins, PA-C Tissues: A - Hemorroid Procedures: Hematoxylin and Eosin Stain Gross and Microscopic Level 3
--- NOTE | 2025-01-04 14:45 | P.OP_ITS ---
Procedure Note - Detailed Date of Procedure 01/04/25 Pre-op Diagnosis Grade 4 internal hemorrhoids, thrombosed external hemorrhoids Post-op Diagnosis Same Procedure Performed internal and external hemorrhoidectomy x2 columns Surgeon Israel De Leon, DO Anesthesia General and Local (0.5% bupivacaine with epinephrine) Indications this is a 54-year-old woman who presented to the emergency department with complaints of rectal bleeding for the past 2 weeks. She was found to be significantly anemic and had to have a transfusion. She underwent colonoscopy and was found to have internal and external hemorrhoids but no other source of bleeding. She has evidence of grade 4 internal hemorrhoids and evidence of thrombosed external hemorrhoids. I have discussed findings and treatment options with patient and decision was made to proceed with internal and external hemorrhoidectomy. Findings The patient was found to have significant prolapsing internal hemorrhoids and thrombosed external hemorrhoids in the left lateral and right posterior positions. Internal and external hemorrhoidectomy was performed in each location. The hemorrhoids were very large causing a significant amount of edema and hyperemia in the surrounding area. After completing the hemorrhoidectomy in these 2 locations, there did not appear to be any significant residual hemorrhoids that needed to be excised. The hemorrhoid tissue was sent to the lab for pathology. Description of Procedure Procedure as well as risks, benefits, and alternatives were discussed with the patient. Written consent was obtained and placed in chart prior to procedure. Patient was brought back to surgical suite. She was placed supine on his hospital stretcher. Time-out was done to confirm patient and procedure. she was then intubated by the Anesthesia Department. she was then repositioned into prone oly-knife position. her perirectal area was prepped and draped in sterile fashion using Betadine prep. Digital rectal exam was in itially performed. A Hill-Orellana anoscope was then inserted and the anal rectal canal was inspected. 0.5% bupivacaine with epinephrine was infiltrated locally around the perianal skin. Hemorrhoids were identified in the left lateral and right posterior positions. A Fansler anoscope was then inserted. The apex of the internal hemorrhoid bundle in the left lateral location was ligated initially using a 2 0 chromic [id number] suture. A triangular incision was then made on the anoderm including the external hemorrhoid using a 15 blade scalpel. The hemorrhoid tissue was carefully lifted free from the sphincter muscle using sharp dissection with a 15 blade scalpel. Electrocautery was then used for hemostasis. A curved Peon clamp was then placed across the hemorrhoid bundle and the hemorrhoid tissue was cut away using Metzenbaum scissors. The 2 0 chromic suture was then run across the rectal mucosa down to the anal verge across the clamp. The suture was then run back proximally to the apex stitch with running locking sutures and the stitch was then tied down in place. The area was then irrigated with sterile saline, and hemostasis along the anoderm was achieved with electrocautery. The anoderm was then reapproximated using 3 0 chromic simple interrupted sutures. I then repositioned the anoscope to the right posterior location. The apex of the internal hemorrhoid bundle in the right posterior location was ligated initially using a 2 0 chromic [id number] suture. A triangular incision was then made on the anoderm including the external hemorrhoid using a 15 blade scalpel. The hemorrhoid tissue was carefully lifted free from the sphincter muscle using sharp dissection with a 15 blade scalpel. Electrocautery was then used for hemostasis. A curved Peon clamp was then placed across the hemorrhoid bundle and the hemorrhoid tissue was cut away using Metzenbaum scissors. The 2 0 chromic suture was then run across the rectal mucosa down to the anal verge across the clamp. The suture was then run back proximally to the apex stitch with running locking sutures and the stitch was then tied down in place. The area was then irrigated with sterile saline, and hemostasis along the anoderm was achieved with electrocautery. The anoderm was then reapproximated using 3 0 chromic simple interrupted sutures. The Hill-Orellana anoscope was then reinserted and the anorectal canal was carefully inspected 1 more time circumferentially. No other abnormalities were identified, and hemostasis appeared adequate. Gelfoam gauze was then inserted into the anal canal. Fluff gauze, ABD pad, and mesh panties were applied. The patient was then awakened from anesthesia, extubated, and transferred to recovery. Estimated Blood Loss 150 Urine Output 0 Packing Yes (Surgifoam) Pathology Yes ( internal and external hemorrhoids) Complications No immediate complications Condition Stable Disposition Floor [facility] Billing Surgery - Charge Forward: Surgery Billing
--- NOTE | 2025-01-04 15:53 | PC.NURSE ---
pt returned from surgery, assisted to bathroom to attempt to have a BM, has pressure but no pain at this time, clear liquid diet began per MD orders
[2025-01-04] MEDS: PSYLLIUM POWDER PACKET 1 PACKET PO (17:42)
[2025-01-04] MEDS: HYDROcodone/acetaminophen (*CRX) 5-325 MG TABLET 1 TAB PO ×2 (17:42→21:16)
[2025-01-04] MEDS: FERROUS SULFATE 325 MG TABLET DR PO (17:43)
[2025-01-05 00:33] VITALS: BP 122/62; PULSE 89; RESP 14; TEMP 36.4; O2SAT 95
[2025-01-05] MEDS: HYDROcodone/acetaminophen (*CRX) 5-325 MG TABLET 1 TAB PO (03:53)
[2025-01-05 05:36] VITALS: BP 120/67; PULSE 91; RESP 14; TEMP 36.6; O2SAT 98
[2025-01-05 05:52] LABS: Hematocrit 23.2 % (37.0-47.0); Hemoglobin 7.4 g/dL (12.0-15.0); Mean Corpuscular HGB Conc 31.9 g/dl (32-36); Mean Corpuscular Hemoglobin 27.9 pg (26-34); Mean Corpuscular Volume 87.5 fl (80-100); Mean Platelet Volume 8.8 fl (7.4-10.4); Platelet Count Result 384 k/mm3 (150-375); Red Blood Count 2.65 M/mm3 (4.2-5.4); Red Cell Distribution Width 14.6 % (11.5-14.5); White Blood Count 15.6 K/mm3 (4.5-10.0)
[2025-01-05 06:17] LABS: Alanine Aminotransferase 35 U/L (6-35); Albumin Level 3.3 g/dL (3.5-5.1); Alkaline Phosphatase 82 U/L (38-126); Anion Gap 5 mmol/L (4-12); Aspartate Amino Transferase 27 U/L (14-36); Bilirubin,Total 0.3 mg/dL (0.2-1.3); Blood Urea Nitrogen 8 mg/dL (7-17); Calcium 8.3 mg/dL (8.4-10.2); Carbon Dioxide 28 mmol/L (22-30); Chloride 107 mmol/L (98-107); Estimated CRCL calculation 72 ml/min; Estimated Glomerular Filt Rate > 60; Glucose 125 mg/dL (65-110); Potassium 3.8 mmol/L (3.4-5.0); Sodium 140 mmol/L (137-145); Total Protein 5.9 g/dL (6.3-8.2)
--- NOTE | 2025-01-05 08:00 | P.PNIM_ITS ---
Progress Note: A&P Assessment and Plan (1) GI (gastrointestinal bleed): Qualifiers: GI bleed type/associated pathology: unspecified gastrointestinal hemorrhage type Qualified Code(s): K92.2 - Gastrointestinal hemorrhage, unspecified Code(s): K92.2 - Gastrointestinal hemorrhage, unspecified Status: Acute Assessment and Plan: GI bleed for the past 2-3 weeks, bright red blood with small clots as well as a history of internal hemorrhoids leading to perception that bleeding is lower GI. H/H remains stable, continue to monitor Pantoprazole BID Diet: NPO, resume diet after procedure DVT Px: SCDs. Avoid anti-coagulations Monitor serum electrolytes, CBC, hemoglobin/hematocrit q.8 hours. If hemoglobin drops below 7 transfuse packed red blood cells Monitor for bloody bowel movements,chest pain,SOB or dizziness/lightheadedness GI consulted s/p EGD and colonoscopy on 01/[address] Faustin EGD normal Colonoscopy showed internal hemorrhoids, recommend surgical consult. Consult placed. Surgery consulted s/p internal and external hemorrhoidectomy x2 columns on 01/[address] De Leon (2) Internal hemorrhoids: Code(s): K64.8 - Other hemorrhoids Status: Acute Assessment and Plan: Colonoscopy showed internal hemorrhoids, recommend surgical consult. Consult placed. s/p internal and external hemorrhoidectomy x2 columns on 01/[address] De Leon (3) Iron deficiency anemia: Qualifiers: Iron deficiency anemia type: chronic blood loss Qualified Code(s): D50.0 - Iron deficiency anemia secondary to blood loss (chronic) Code(s): D50.9 - Iron deficiency anemia, unspecified Status: Acute Assessment and Plan: Patient transfused 2 units as hemoglobin initially 5.7 on admission, repeat 7.8 Iron studies completed and showed iron deficiency. Will start ferrous sulfate 325 mg p.o. t.i.d. Transfuse if less than 7. Monitor hemodynamic stability. (4) Hypertension: Qualifiers: Hypertension type: primary hypertension Qualified Code(s): I10 - Essential (primary) hypertension Code(s): I10 - Essential (primary) hypertension Status: Acute Assessment and Plan: Chronic, continue home medications. Losartan held for surgery. Resume postprocedure. Hydralazine p.r.n.. Subjective Date/time seen: 01/05/25 08:00 Interval history: 54-year-old female with past medical history of MASH, rectus diastasis, adenomatous and serrated colon polyps, anxiety, hyperlipidemia and hypertension presents to the hospital with rectal bleeding. Review of Systems Review of Systems: All systems reviewed & are unremarkable except as noted in HPI and below Exam Narrative: AF HR General: female in no acute respiratory distress who is nontoxic appearing, lying on her side HEENT: Normocephalic. Atraumatic. Extraocular movement intact. Sclera clear and anicteric. No facial asymmetry. Chest: Lungs are clear to auscultation bilaterally. No wheezes or crackles. CV: Heart was regular rate and rhythm. Abd: Abdomen was soft. Nontender. Nondistended. Positive bowel sounds. Ext: No clubbing, cyanosis, or edema. DP pulses bilaterally. Neuro: Patient is alert and oriented x4. Speech is clear. Objective Data Vital Signs Vital Signs: Vital Signs - 24 hr 01/04/25 08:10 01/04/25 09:11 01/04/25 12:05 Temperature 98.0 F Pulse Rate 94 Respiratory Rate 18 Blood Pressure 160/70 H Pulse Oximetry 98 100 Oxygen Delivery Room Air Room Air Room Air Oxygen Flow Rate 01/04/25 14:29 01/04/25 14:40 01/04/25 14:55 Temperature 98.2 F Pulse Rate 95 98 95 Respiratory Rate 14 16 16 Blood Pressure 168/73 H 167/87 H 186/71 H Pulse Oximetry 100 100 100 Oxygen Delivery Simple Face Mask Simple Face Mask Simple Face Mask Oxygen Flow Rate 6 6 6 01/04/25 15:10 01/04/25 15:20 01/04/25 15:25 Temperature Pulse Rate 96 105 H Respiratory Rate 16 16 Blood Pressure 189/83 H 153/98 H Pulse Oximetry 100 98 Oxygen Delivery Simple Face Mask Room Air Room Air Oxygen Flow Rate 6 01/04/25 15:40 01/04/25 16:03 01/04/25 16:32 Temperature 98.7 F Pulse Rate 104 H 93 90 Respiratory Rate 16 18 18 Blood Pressure 161/87 H 139/61 142/66 H Pulse Oximetry 94 93 99 Oxygen Delivery Room Air Oxygen Flow Rate 01/04/25 16:34 01/04/25 17:10 01/04/25 20:40 Temperature 98.0 F 97.1 F L Pulse Rate 92 97 Respiratory Rate 16 18 Blood Pressure 145/76 H 159/72 H Pulse Oximetry 88 L 92 Oxygen Delivery Room Air Oxygen Flow Rate 01/04/25 21:14 01/05/25 00:33 01/05/25 05:36 Temperature 97.6 F 97.6 F 97.8 F Pulse Rate 100 89 91 Respiratory Rate 16 14 14 Blood Pressure 158/68 H 122/62 120/67 Pulse Oximetry 97 95 98 Oxygen Delivery Oxygen Flow Rate Intake/Output Intake/Output: Intake & Output 01/02/25 01/03/25 01/04/25 01/05/25 23:59 23:59 23:59 23:59 Intake Total 1700 2251 594.5 450 Output Total 0 400 0 Balance 1700 1851 594.5 450 Meds/Results Medications: Active Medications Generic Name Dose Route Start Last Admin Trade Name Freq PRN Reason Stop Dose Admin Acetaminophen 650 mg 01/02/25 15:02 Acetaminophen 325 Mg Tablet PO Q4H PRN Mild Pain (1-3) or Fever Hydrocodone Bitart/Acetaminophen 1 tab 01/04/25 15:51 01/05/25 03:53 Hydrocodone/Acetaminophen (*Crx) 5-325 Mg Tablet PO 1 tab Q4H PRN Administration Pain Rated 4-6 Hydrocodone Bitart/Acetaminophen 1 tab 01/04/25 15:51 Hydrocodone/Acetaminophen (*Crx) 10-325 Mg Tablet PO Q4H PRN Pain Rated 7-10 Atorvastatin Calcium 40 mg 01/03/25 09:00 01/04/25 09:25 Atorvastatin 40 Mg Tablet PO Not Given DAILY [facility] Ferrous Sulfate 325 mg 01/03/25 09:00 01/04/25 17:43 Ferrous Sulfate [address] PO 325 mg TID MAYRA Administration Hydralazine HCl 10 mg 01/02/25 23:29 Hydralazine Hcl 20 Mg/Ml Vial IV PUSH Q8H PRN Blood Pressure - > 180/90 Ibuprofen 800 mg in 200 mls @ 400 mls/hr 01/04/25 15:51 Caldolor 800 Mg/200 Ml IVPB Q6H PRN Breakthrough Pain Rated 1-3 or NPO Morphine Sulfate 2 mg 01/04/25 15:51 Morphine Sulfate (*Crx) 2 Mg/Ml Inj IV PUSH Q2H PRN Breakthrough Pain Rated 4-6 or NPO Morphine Sulfate 4 mg 01/04/25 15:51 Morphine Sulfate (*Crx) 4 Mg/Ml Inj IV PUSH Q2H PRN Breakthrough Pain Rated 7-10 or NPO Multivitamins Therapeutic 1 tablet 01/03/25 09:00 01/04/25 09:25 Multivitamins Therapeutic Tab (*Bkc) PO Not Given DAILY MAYRA Ondansetron HCl 4 mg 01/02/25 15:02 Ondansetron Inj 4 Mg/2 Ml Vial IV PUSH Q4H PRN Nausea Paroxetine HCl 10 mg 01/03/25 09:00 01/04/25 09:25 Paroxetine 10 Mg Tablet PO Not Given DAILY MAYRA Polyethylene Glycol 17 gm 01/05/25 09:00 Polyethylene Glycol 3350 17 Gm Powd.Pack PO QAM MAYRA Psyllium Hydrophilic Mucilloid 1 packet 01/04/25 17:00 01/04/25 17:42 Psyllium Powder Packet PO 1 packet BID MAYRA Administration Witch Lola 1 pad 01/03/25 12:29 01/03/25 12:43 Witch Lola 40 Pads TOPICAL 1 pad PRN PRN Administration Perineal Discomfort Radiology Results: ITS Impressions Abdomen/Pelvis CTA 01/02/25 13:16 IMPRESSION: 1. No evidence of appendicitis, diverticulitis or intestinal obstruction. No definite active bleeding seen. Clinical evaluation and if warranted colonoscopy is advised. 2. Bilateral adrenal adenomas. Further evaluation with dynamic CT or MRI is advised. Labs Labs: Laboratory Results - last 24 hr 01/04/25 01/05/25 08:41 05:24 WBC 10.8 H 15.6 H RBC 2.90 L 2.65 L Hgb 8.1 L 7.4 L Hct 25.1 L 23.2 L MCV 86.6 87.5 MCH 27.9 27.9 MCHC 32.3 31.9 L RDW 14.4 14.6 H Plt Count 340 384 H MPV 8.5 8.8 Sodium 140 140 Potassium 3.7 3.8 Chloride 108 H 107 Carbon Dioxide 25 28 Anion Gap 7 5 BUN 10 8 Creatinine 0.86 0.91 Estim Creat Clear Calc 76 72 Estimated GFR > 60 > 60 Glucose 133 H 125 H Calcium 8.2 L 8.3 L Total Bilirubin 0.2 0.3 AST 30 27 ALT 38 H 35 Alkaline Phosphatase 91 82 Total Protein 6.1 L 5.9 L Albumin 3.3 L 3.3 L Quality VTE Prophylaxis VTE prophylaxis: mechanical ordered
[2025-01-05] MEDS: HYDROcodone/acetaminophen (*CRX) 10-325 MG TABLET 1 TAB PO ×2 (08:01→12:22)
[2025-01-05] MEDS: polyethylene glycoL 3350 17 GM POWD.PACK PO (08:02)
[2025-01-05] MEDS: MULTIVITAMINS THERAPEUTIC TAB (*BKC) 1 TABLET PO (08:02)
[2025-01-05] MEDS: PARoxetine 10 MG TABLET PO (08:02)
[2025-01-05] MEDS: PSYLLIUM POWDER PACKET 1 PACKET PO (08:02)
[2025-01-05] MEDS: FERROUS SULFATE 325 MG TABLET DR PO ×2 (08:02→12:21)
[2025-01-05] MEDS: ATORVASTATIN 40 MG TABLET PO (08:02)
[2025-01-05 09:36] VITALS: BP 128/61; PULSE 93; RESP 14; O2SAT 100
--- NOTE | 2025-01-05 10:15 | P.PNGS_ITS ---
Progress Note: A&P Assessment and Plan (1) Grade IV internal hemorrhoids: Code(s): K64.3 - Fourth degree hemorrhoids Status: Acute Assessment and Plan: * POD1 after internal and external hemorrhoidectomy. Patient is tolerating a diet without any nausea or vomiting. No bowel movement yet, but she is passing flatus. No concepción bleeding noted. Pain is tolerable with oral medication. Hemoglobin is low but stable and no longer at critical levels. If patient remains stable, she is ready for discharge from a surgical standpoint. Will discuss with Dr. De Leon. (2) Thrombosed hemorrhoids: Code(s): K64.5 - Perianal venous thrombosis Status: Acute (3) Iron deficiency anemia: Qualifiers: Iron deficiency anemia type: chronic blood loss Qualified Code(s): D50.0 - Iron deficiency anemia secondary to blood loss (chronic) Code(s): D50.9 - Iron deficiency anemia, unspecified Status: Acute (4) Hypertension: Qualifiers: Hypertension type: primary hypertension Qualified Code(s): I10 - Essential (primary) hypertension Code(s): I10 - Essential (primary) hypertension Status: Acute Subjective Subjective Date/Time Seen: 01/05/25 10:15 Patient reports: no new complaints, flatus, no bowel movement and afebrile Interval history: Patient is doing well today. No acute events overnight. She has not needed any IV pain medication. She does not note any concepción bleeding. WBC 15.6, but likely postop reaction. She has not had a bowel movement yet but she is passing flatus. Exam Const: General: comfortable and no acute distress Neck: Neck: supple and no JVD Resp: Effort & Inspection: normal respiratory effort Cardio: Rate: regular rate GI: Auscultation: normal bowel sounds Skin: General skin exam: normal color and no rashes or lesions noted Extrem: General: normal to inspection Psych: Mental Status: mental status grossly normal Objective Data Vital Signs Vital Signs: Vital Signs - 24 hr 01/04/25 12:05 01/04/25 14:29 01/04/25 14:40 Temperature 98.0 F 98.2 F Pulse Rate 94 95 98 Respiratory Rate 18 14 16 Blood Pressure 160/70 H 168/73 H 167/87 H Pulse Oximetry 100 100 100 Oxygen Delivery Room Air Simple Face Mask Simple Face Mask Oxygen Flow Rate 6 6 01/04/25 14:55 01/04/25 15:10 01/04/25 15:20 Temperature Pulse Rate 95 96 Respiratory Rate 16 16 Blood Pressure 186/71 H 189/83 H Pulse Oximetry 100 100 Oxygen Delivery Simple Face Mask Simple Face Mask Room Air Oxygen Flow Rate 6 6 01/04/25 15:25 01/04/25 15:40 01/04/25 16:03 Temperature Pulse Rate 105 H 104 H 93 Respiratory Rate 16 16 18 Blood Pressure 153/98 H 161/87 H 139/61 Pulse Oximetry 98 94 93 Oxygen Delivery Room Air Room Air Oxygen Flow Rate 01/04/25 16:32 01/04/25 16:34 01/04/25 17:10 Temperature 98.7 F 98.0 F 97.1 F L Pulse Rate 90 92 97 Respiratory Rate 18 16 18 Blood Pressure 142/66 H 145/76 H 159/72 H Pulse Oximetry 99 88 L 92 Oxygen Delivery Oxygen Flow Rate 01/04/25 20:40 01/04/25 21:14 01/05/25 00:33 Temperature 97.6 F 97.6 F Pulse Rate 100 89 Respiratory Rate 16 14 Blood Pressure 158/68 H 122/62 Pulse Oximetry 97 95 Oxygen Delivery Room Air Oxygen Flow Rate 01/05/25 05:36 01/05/25 09:36 Temperature 97.8 F Pulse Rate 91 93 Respiratory Rate 14 14 Blood Pressure 120/67 128/61 Pulse Oximetry 98 100 Oxygen Delivery Oxygen Flow Rate Intake/Output Intake/Output: Intake & Output 01/02/25 01/03/25 01/04/25 01/05/25 23:59 23:59 23:59 23:59 Intake Total 1700 2251 594.5 690 Output Total 0 400 0 Balance 1700 1851 594.5 690 Meds/Results Medications: Active Medications Generic Name Dose Route Start Last Admin Trade Name Freq PRN Reason Stop Dose Admin Acetaminophen 650 mg 01/02/25 15:02 Acetaminophen 325 Mg Tablet PO Q4H PRN Mild Pain (1-3) or Fever Hydrocodone Bitart/Acetaminophen 1 tab 01/04/25 15:51 01/05/25 03:53 Hydrocodone/Acetaminophen (*Crx) 5-325 Mg Tablet PO 1 tab Q4H PRN Administration Pain Rated 4-6 Hydrocodone Bitart/Acetaminophen 1 tab 01/04/25 15:51 01/05/25 08:01 Hydrocodone/Acetaminophen (*Crx) 10-325 Mg Tablet PO 1 tab Q4H PRN Administration Pain Rated 7-10 Atorvastatin Calcium 40 mg 01/03/25 09:00 01/05/25 08:02 Atorvastatin 40 Mg Tablet PO 40 mg DAILY MAYRA Administration Ferrous Sulfate 325 mg 01/03/25 09:00 01/05/25 08:02 Ferrous Sulfate [address] PO 325 mg TID MAYRA Administration Hydralazine HCl 10 mg 01/02/25 23:29 Hydralazine Hcl 20 Mg/Ml Vial IV PUSH Q8H PRN Blood Pressure - > 180/90 Ibuprofen 800 mg in 200 mls @ 400 mls/hr 01/04/25 15:51 Caldolor 800 Mg/200 Ml IVPB Q6H PRN Breakthrough Pain Rated 1-3 or NPO Morphine Sulfate 2 mg 01/04/25 15:51 Morphine Sulfate (*Crx) 2 Mg/Ml Inj IV PUSH Q2H PRN Breakthrough Pain Rated 4-6 or NPO Morphine Sulfate 4 mg 01/04/25 15:51 Morphine Sulfate (*Crx) 4 Mg/Ml Inj IV PUSH Q2H PRN Breakthrough Pain Rated 7-10 or NPO Multivitamins Therapeutic 1 tablet 01/03/25 09:00 01/05/25 08:02 Multivitamins Therapeutic Tab (*Bkc) PO 1 tablet DAILY MAYRA Administration Ondansetron HCl 4 mg 01/02/25 15:02 Ondansetron Inj 4 Mg/2 Ml Vial IV PUSH Q4H PRN Nausea Paroxetine HCl 10 mg 01/03/25 09:00 01/05/25 08:02 Paroxetine 10 Mg Tablet PO 10 mg DAILY MAYRA Administration Polyethylene Glycol 17 gm 01/05/25 09:00 01/05/25 08:02 Polyethylene Glycol 3350 17 Gm Powd.Pack PO 17 gm QAM MAYRA Administration Psyllium Hydrophilic Mucilloid 1 packet 01/04/25 17:00 01/05/25 08:02 Psyllium Powder Packet PO 1 packet BID MAYRA Administration Witch Lola 1 pad 01/03/25 12:29 01/03/25 12:43 Witch Lola 40 Pads TOPICAL 1 pad PRN PRN Administration Perineal Discomfort Radiology Results: ITS Impressions Abdomen/Pelvis CTA 01/02/25 13:16 IMPRESSION: 1. No evidence of appendicitis, diverticulitis or intestinal obstruction. No definite active bleeding seen. Clinical evaluation and if warranted colonoscopy is advised. 2. Bilateral adrenal adenomas. Further evaluation with dynamic CT or MRI is advised. Labs Labs: Laboratory Results - last 24 hr 01/05/25 05:24 WBC 15.6 H RBC 2.65 L Hgb 7.4 L Hct 23.2 L MCV 87.5 MCH 27.9 MCHC 31.9 L RDW 14.6 H Plt Count 384 H MPV 8.8 Sodium 140 Potassium 3.8 Chloride 107 Carbon Dioxide 28 Anion Gap 5 BUN 8 Creatinine 0.91 Estim Creat Clear Calc 72 Estimated GFR > 60 Glucose 125 H Calcium 8.3 L Total Bilirubin 0.3 AST 27 ALT 35 Alkaline Phosphatase 82 Total Protein 5.9 L Albumin 3.3 L
[2025-01-05 11:03] LABS: Hematocrit 23.6 % (37.0-47.0); Hemoglobin 7.4 g/dL (12.0-15.0)
[2025-01-05 13:36] VITALS: BP 123/59; PULSE 90; RESP 16; O2SAT 98
--- NOTE | 2025-01-05 14:00 | WPDANESPN ---
Anes - Prog Note Post-Op Date/Time: 01/05/25 14:00 Cardiovascular status: normal Respiratory status: normal Airway patency: baseline Mental status: baseline Post-Op hydration status: normal Vital Signs: Last Vital Signs Temp 97.8 F 01/05/25 05:36 Pulse 93 01/05/25 09:36 Resp 14 01/05/25 09:36 BP 128/61 01/05/25 09:36 Pulse Ox 100 01/05/25 09:36 O2 Del Method Room Air 01/04/25 20:40 O2 Flow Rate 6 01/04/25 15:10 Pain Score (VAS): 0/10 I/O: Intake & Output 01/04/25 01/05/25 01/05/25 23:59 07:59 15:59 Intake Total 220 450 480 Balance 220 450 480 Laboratory Tests 01/05/25 10:54 01/05/25 05:24 01/05/25 01/05/25 05:24 10:54 WBC 15.6 H RBC 2.65 L Hgb 7.4 L 7.4 L Hct 23.2 L 23.6 L MCV 87.5 MCH 27.9 MCHC 31.9 L RDW 14.6 H Plt Count 384 H MPV 8.8 Sodium 140 Potassium 3.8 Chloride 107 Carbon Dioxide 28 Anion Gap 5 BUN 8 Creatinine 0.91 Estim Creat Clear Calc 72 Estimated GFR > 60 Glucose 125 H Calcium 8.3 L Total Bilirubin 0.3 AST 27 ALT 35 Alkaline Phosphatase 82 Total Protein 5.9 L Albumin 3.3 L Post-procedural complaints: none Patient Feedback: Patient satisfied with anesthetic care.
--- NOTE | 2025-01-05 15:18 | P.DS_ITS ---
DS: Admitting Diagnosis Discharge Date 01/05/2025 Admitting Diagnosis GI bleed Internal hemorrhoids Iron deficiency anemia Hypertension DS: Discharge Diagnosis Discharge Diagnosis (1) GI (gastrointestinal bleed): Qualifiers: GI bleed type/associated pathology: unspecified gastrointestinal hemorrhage type Qualified Code(s): K92.2 - Gastrointestinal hemorrhage, unspecified Code(s): K92.2 - Gastrointestinal hemorrhage, unspecified Status: Acute (2) Internal hemorrhoids: Code(s): K64.8 - Other hemorrhoids Status: Acute (3) Iron deficiency anemia: Qualifiers: Iron deficiency anemia type: chronic blood loss Qualified Code(s): D5 0.0 - Iron deficiency anemia secondary to blood loss (chronic) Code(s): D50.9 - Iron deficiency anemia, unspecified Status: Acute (4) Hypertension: Qualifiers: Hypertension type: primary hypertension Qualified Code(s): I10 - Essential (primary) hypertension Code(s): I10 - Essential (primary) hypertension Status: Acute DS: Summary Hospital Course Reason for hospitalization: GI bleed Internal hemorrhoids Iron deficiency anemia Hypertension Hospital Course: 54-year-old female with past medical history of MASH, rectus diastasis, adenomatous and serrated colon polyps, anxiety, hyperlipidemia and hypertension presents to the hospital with rectal bleeding. Patient reported bleeding for the past 2-3 weeks, bright red blood with small clots as well as a history of internal hemorrhoids leading to perception that bleeding is lower GI. Patient transfused 2 units as hemoglobin initially 5.7 on admission, following transfusion hemoglobin levels remained stable. Iron studies completed and showed iron deficiency. Started on ferrous sulfate 325 mg p.o. t.i.d. Will obtain a repeat H/H in the outpatient setting to reassess. During admission GI was consulted for the bleed. Patient underwent an EGD and colonoscopy on 01/[address] Faustin. EGD was normal and colonoscopy showed showed internal hemorrhoids, recommend surgical consult. Surgery consulted and patient underwent internal and external hemorrhoidectomy x2 columns on 01/[address] De Leon. Patient is now tolerating her diet well denying nausea and vomiting. She states that he pain is well controlled. She has not had a bowel movement yet, but is passing flatus. Per surgery patient is ready for discharge from their standpoint with follow up in 2 weeks. Patient has no complaints at time of discharge denying chest pain, shortness a breath, palpitations, nausea/vomiting, abdominal pain. Patient discharged home with family in a stable condition. She is to follow up with her primary care provider in 1 week and GI and surgery as scheduled. Status at Discharge Functional status at discharge: independent ambulation Time Spent with Patient Time attestation: Total time spent providing and/or coordinating discharge services: Time spent: Greater than 30 minutes Exam Narrative: AF HR 90 RR 16 Spo2 98 BP 123/59 General: female in no acute respiratory distress who is nontoxic appearing, lying on her side HEENT: Normocephalic. Atraumatic. Extraocular movement intact. Sclera clear and anicteric. No facial asymmetry. Chest: Lungs are clear to auscultation bilaterally. No wheezes or crackles. CV: Heart was regular rate and rhythm. Abd: Abdomen was soft. Nontender. Nondistended. Positive bowel sounds. Ext: No clubbing, cyanosis, or edema. DP pulses bilaterally. Neuro: Patient is alert and oriented x4. Speech is clear. DS: Data Data Completed and Pending Completed studies during hospitalization: Abdomen pelvis CTA Pending studies at discharge: Pending at discharge 01/04/25 13:39 Surgical [PTH] Routine Labs on day of discharge: Labs from last 24 hours 01/05/25 01/05/25 10:54 05:24 WBC 15.6 H RBC 2.65 L Hgb 7.4 L 7.4 L Hct 23.6 L 23.2 L MCV 87.5 MCH 27.9 MCHC 31.9 L RDW 14.6 H Plt Count 384 H MPV 8.8 Sodium 140 Potassium 3.8 Chloride 107 Carbon Dioxide 28 Anion Gap 5 BUN 8 Creatinine 0.91 Estim Creat Clear Calc 72 Estimated GFR > 60 Glucose 125 H Calcium 8.3 L Total Bilirubin 0.3 AST 27 ALT 35 Alkaline Phosphatase 82 Total Protein 5.9 L Albumin 3.3 L Discharge Plan Discharge Attending physician on discharge: Jaswant Wilson Consulting providers: Mahi Win; Israel De Leon Discharging Clinician: Mahi Win Anticipated Discharge Date/Time: 01/05/25 15:06 Patient Disposition: Home Activity: other - see discharge instructions Diet: as tolerated and high fiber Wound Care Instructions: other - see discharge instructions Discharge Instructions: Discharge Instructions for Anorectal Surgery Dr. De Leon 1. May discharge from Outpatient Surgery area when stable per protocol. 2. Activity: Remove dressing and start Sitz baths in a.m. Following surgery once at home, all patients should take 10-20 minute Sitz baths at least twice a day and as needed after each bowel movement. Rest around the house for the next 1-2 days, taking frequent walks. No driving for 2-3 days or while taking narcotic pain medications. 3. Diet: Regular diet with 6-8 glasses of water per day. Eat plenty of fruits and vegetables. 4. Medications: * Resume all home medications * Metamucil 1 tablespoon PO twice a day * Milk of Magnesia 1 oz (30cc) PO daily or Miralax 1 capful PO daily * Suncook 5mg/325mg 2 PO q 4-6 hours as needed for pain * Tucks cream pads to perianal skin after each Sitz bath Prescriptions for the above medications will be provided at the time of discharge or they can be bought [id number]. 5. Follow-up: call office for appointment in 10-14 days or as previously scheduled. 6. Call office if: * Sudden increase in pain, swelling or incisional drainage or bleeding occurs * Fever > 101 degrees F * Nausea and vomiting occur * Inability to urinate 7. Other orders: Discharge disposition per hospitalist: Patient admitted to the hospital for rectal bleeding and found to be anemic requiring a blood transfusion Iron deficiency noted, started on iron supplementation Obtain a blood draw in 3 days to reassess hemoglobin levels Underwent an EGD and colonoscopy on 01/03 Follow-up with GI, call for an appointment Underwent an internal and external hemorrhoidectomy on 01/04 See surgical discharge instructions above Monitor blood pressures Take caution while standing, rising, or moving Change positions slowly taking a break between each position change If you standing feel dizzy sit back down and take a break Encouraged to continue with yearly vaccinations Return to the emergency department if he developed sudden shortness of breath, chest pain, nausea, vomiting, upset stomach or intractable diarrhea Return to the emergency department if you develop fever greater than 101.5 Follow-up with the primary care physician within 1-2 weeks Thank you for [facility] for your healthcare needs Formulated February 2013 Rev. February 2014 Patient Instructions: Anemia (DC), Opioid Safety (DC), Hemorrhoidectomy (DC) Patient Language: Faroese Stand Alone Forms: General Discharge Information Follow-up/Referrals: Hema Azul MD [Primary Care Provider] - 1 Week Davie Faustin MD [Physician] - Call for Appointment Israel De Leon DO [Physician] - 2 Weeks Discharge Medications: New hydrocodone-acetaminophen 5-325 mg tablet 1 - 2 tablet PO Q4H PRN (Reason: pain) Qty: 20 0RF ferrous sulfate 325 mg (65 mg iron) Tablet,Delayed Release (Dr/Ec) 325 mg PO TID Qty: 30 0RF Continued multivitamin Tablet 1 tablet PO DAILY paroxetine HCl 10 mg tablet 10 mg PO DAILY Qty: 90 1RF atorvastatin 40 mg tablet 40 mg PO DAILY Qty: 90 1RF losartan 100 mg tablet See Rx Instructions .ROUTE .COMPLEX Qty: 30 5RF Dose Instruction: TAKE 1 TABLET BY MOUTH DAILY Rx Instructions: TAKE 1 TABLET BY MOUTH DAILY Other Ambulatory Orders: Complete Blood Count no Diff (Routine) Timeframe: 3 Days Location: Determined by Patient Ordered By: Mahi Win Date of admission: 01/04/25 09:25 Primary Care Provider: Hema Azul Admitting Provider: Truman Chavez Attending physician on admission: Truman Chavez Condition: Stable Hospitalist MIPS Heart Failure (Exclusion) Patient has history of Heart Transplant or Left Ventricular Assistive Device?: No IF YES, STOP HERE Heart Failure (Qualifier) Patient has current or prior documentation of LVEF less than or equal to 40%, or mod/servere depressed LVSF?: No IF NO, STOP HERE
== END 2025-01-05 15:53 | disposition home or self-care (01) | DRG 348 ==
LOC: ANHED 11:06 → ANH2MED 15:23
PROVIDERS: Internal Medicine Gastroenterology; Student in an Organized Health Care Education/Training Program; Surgery; Admitting Provider Internal Medicine; Emergency Provider Student in an Organized Health Care Education/Training Program; PCP Family Medicine; Visit Provider Student in an Organized Health Care Education/Training Program
PROC: 0DJ08ZZ Inspection of Upper Intestinal Tract, Via Natural or Artificial Opening Endoscopic (ICD-10-PCS; CPT 45378; principal; 2025-01-03 14:30)
PROC: 06BY3ZC Excision of Hemorrhoidal Plexus, Percutaneous Approach (ICD-10-PCS; principal; 2025-01-04 18:30)
DX: K64.3 Fourth degree hemorrhoids (principal); K92.2 Gastrointestinal hemorrhage, unspecified; K64.5 Perianal venous thrombosis; D50.9 Iron deficiency anemia, unspecified; E78.5 Hyperlipidemia, unspecified; E66.01 Morbid (severe) obesity due to excess calories; F41.9 Anxiety disorder, unspecified; I10 Essential (primary) hypertension; K75.81 Nonalcoholic steatohepatitis (NASH); M62.08 Separation of muscle (nontraumatic), other site; Z86.0100 Personal history of colon polyps, unspecified; Z90.49 Acquired absence of other specified parts of digestive tract; Z87.891 Personal history of nicotine dependence
CPT/HCPCS: 36415; 36430; 74174; 80053; 81001; 82728; 83540; 83550; 83605; 83690; 83735; 84484; 85014; 85018; 85025; 85027; 85610; 85730; 86850; 86900; 86901; 86923; 88304; 93005; 96361; 96374; 99285; A9270; G0378; J0690; J1100; J1171; J2003; J2250; J2270; J2405; J2704; J3010; J7030; J7050; J7120; P9016; Q9967